=== PATIENT | male | born 1970 | race Caucasian/White ===

== ENCOUNTER 2023-04-21 19:14 | Inpatient (IN) | payer BC, SELFPAY ==
[2023-04-21] VITALS (17 sets, daily range): BP systolic 104–145; BP diastolic 61–93; BMI 30.1
[2023-04-21] MEDS: ZOSYN 50 IV ×2 (16:46→23:18)
[2023-04-21] MEDS: MORPHINE SULFATE 4 MG IV (16:46)
[2023-04-21] MEDS: NSS 1000 IV ×2 (16:46→18:40)
[2023-04-21 16:47] LABS: % Eosinophils 0.1 % (0-6); % Immature Granulocytes 0.7 % (0-0.5); % Lymphocytes 2.9 % (20.5-51.1); % Monocytes 2.7 % (1.7-9.3); % Neutrophils 93.6 % (42.2-75.2); Absolute Immature Granulocytes 0.2 10^3/uL (0-0.05); Absolute Lymphocytes 0.7 10^3/uL (1.2-3.4); Absolute Monocytes 0.7 10^3/uL (0.1-0.6); Absolute Neutrophils 23.5 10^3/uL (1.4-6.5); Hematocrit 40.2 % (39.0-52.0); Hemoglobin 14.9 g/dL (13.0-18.0); Mean Corp Hgb Conc. 37.1 g/dL (33.0-37.0); Mean Corpuscular Hgb 31.8 pg (27.0-31.0); Mean Corpuscular Volume 85.7 fL (80.0-94.0); Mean Platelet Volume 10.8 fL (7.4-10.4); Nucleated Red Blood Cells % 0 % (-); Platelet Count 269 10^3/uL (130-400); Red Blood Cell Count 4.69 10^6/uL (4.70-6.10); Red Cell Dist. Width 12.8 % (11.5-14.5); White Blood Cell Count 25.1 10^3/uL (4.8-10.8)
[2023-04-21 17:00] LABS: Lactic Acid 2.4 mmol/L (0.7-2.0)
[2023-04-21] MEDS: VANCOCIN 300 ML IV (17:27)
[2023-04-21] MEDS: VANCOCIN 300 MG IV (17:27)
[2023-04-21 17:39] LABS: ALT (SGPT) 108 U/L (0-50); AST (SGOT) 236 U/L (17-59); Alkaline Phosphatase 112 U/L (38-126); Blood Urea Nitrogen 101 mg/dl (9-20); Calcium 7.6 mg/dl (8.4-10.2); Carbon Dioxide 10 mmol/L (22-30); Chloride 98 mmol/L (98-107); Estimated Creatinine Clearance 18 ml/min; Glucose 98 mg/dl (70-99); LDH 425 U/L (120-246); Potassium 4.1 mmol/L (3.5-5.1); Sodium 128 mmol/L (135-145); Total Bilirubin 1.2 mg/dl (0.2-1.3); Total Protein 6.3 g/dl (6.3-8.2); eGFR 11.25
--- NOTE | 2023-04-21 18:05 | ED.GENMED ---
History of Present Illness
General
Chief Complaint: Skin Problem
Source: patient
Exam Limitations: none
Time Seen by Provider: 04/21/23 16:14
Nursing documentation reviewed up to this point in time: agreed with
Travel History
Have you had any contact with someone who has COVID-19?: No
Do you have any symptoms of coronavirus? Fever > 100 degrees, chills, cough, shortness of breath, sore throat, loss of taste or smell, muscle aches, or headache?: No
History of Present Illness
History of Present Illness:
53-year-old male with no reported chronic medical issues who presents to the emergency room for evaluation of left leg pain and swelling. Patient reports that 2 weeks ago he noticed a small 'sac' in the left inner thigh that was palpable but not
erythematous and only mildly painful. He says that over the past 48 hours he had an abrupt and rapid worsening. He says that he has had rapid onset of severe redness and warmth, hardness of his left thigh. He said he has had drainage from the
left medial thigh/groin. He says that the pain is significantly increasing. Initially spoke with his primary doctor who recommended to come to the emergency room for assessment. He has not noticed any fevers or chills subjectively. He has not
noticed any other issues including chest pain, abdominal pain, nausea, vomiting, diarrhea, urinary symptoms. He denies any falls or trauma.
Review of Systems
Review of Systems
All Other Systems: ROS reviewed and negative except as documented in HPI and ROS
Constitutional: Denies fever or chills
EENT: Denies sore throat
Respiratory: Denies cough or trouble breathing
Cardiac: Denies chest pain
ABD/GI: Denies abdominal pain, nausea or vomiting
: Denies flank pain
Musculoskeletal: Denies neck pain or back pain
Skin: Reports other (Significant erythema, warmth, swelling and drainage from left thigh)
Neurological: Denies headache, weakness or numbness
Phy Exam
Physical Exam
Physical Exam:
General: Awake, alert, oriented x3; no acute distress
Head: Normocephalic, atraumatic
Eyes: Conjunctiva normal, EOMI
Throat: Airway intact, handling secretions
Neck: Trachea midline, supple without meningismus
Lungs: Clear to auscultation bilaterally, no wheezing, rales, rhonchi
Heart: Tachycardia with regular rhythm, no murmurs, gallops, or rubs
Abd: Soft, non distended, nontender
: No scrotal swelling or erythema of the scrotum and perineum is intact and there is no significant swelling or tenderness in this area
Neuro: Cranial nerves grossly intact, speech fluid
Skin: no rash
Extremities: Patient has marked erythema, induration, warmth and swelling/edema of the left thigh mainly medial extends across the entire anterior thigh and tapers off towards the lateral/posterior aspect of the thigh; does not extend below the
knee; on the medial aspect about 4 cm distal to the inguinal crease he has area of necrotic skin/tissue and significant thin foul-smelling discharge; he does have a good strong left DP pulse
Scores
Heart Failure Risk
Heart Failure Risk Score: Not Applicable
Heart Score for Chest Pain Patients
STEMI patient?: Not applicable
Withdrawal Assessment of Alcohol
Withdrawal Assessment Completed?: Not applicable
Course
Orders/Labs/Results
Orders:
Orders
04/21/23 16:31
Urinalysis Reflex To Culture Urgent
04/21/23 16:33
0.9% Sodium Chloride 1000 ml [Nss] 1,000 ml IV BOLUS
Morphine Sulfate 4 mg IV NOW STA
Piperacillin/Tazo 3.375 Gram [Zosyn] 3.375 gram in 50 ml IV NOW
04/21/23 16:40
Complete Blood Count/With Diff Urgent
Lactate Level [Lactic Acid] Urgent
04/21/23 16:41
CRP [C-Reactive Protein] Urgent
Blood Culture Q30M
MARISOL Source: Blood/Venous
Specimen Description:
04/21/23 16:43
Blood Culture Q30M
MARISOL Source: Blood/Venous
Specimen Description:
04/21/23 16:55
Wound Culture [Wound/Abscess/Other Culture] Urgent
MARISOL Source: Leg
Specimen Description: Left
Date Specimen was Collected: 04/21/23
Time Specimen was Collected: 16:54
04/21/23 17:10
Comprehensive Metabolic Panel Urgent
LDH Urgent
04/21/23 17:18
Vancomycin [Vancocin] 1,500 mg 0.9% Sodium Chloride [Nss] 20 ml 0.9% Sodium Chloride 250 ml [Nss] 250 ml IV NOW
04/21/23 17:43
Bladder Scan- Treatment ONCE
0.9% Sodium Chloride 1000 ml [Nss] 1,000 ml IV BOLUS
04/21/23 17:44
CT Lower Ext W/o Iv Cont Lt Urgent
Comment:
Reason For Exam: eval for signs of abscess or soft tissue gas
04/21/23 18:01
NEPHROLOGY CONSULT Urgent
Consulting Provider: Juliette Mandujano
Was physician already notified: Yes
04/21/23 18:19
Clindamycin 900 mg/50 ml [Cleocin] 900 mg in 50 ml IV NOW
04/21/23 18:21
Consult Surgery [SURGICAL CONSULT] Urgent
Consulting Provider: Oren Taylor
Was physician already notified: Yes
Abnormal Lab Results
04/21/23 04/21/23
16:40 17:10
WBC 25.1 H 10^3/uL
(4.8-10.8)
RBC 4.69 L 10^6/uL
(4.70-6.10)
MCH 31.8 H pg
(27.0-31.0)
MCHC 37.1 H g/dL
(33.0-37.0)
MPV 10.8 H fL
(7.4-10.4)
Abs Immat Gran (auto) 0.2 H 10^3/uL
(0-0.05)
Absolute Neuts (auto) 23.5 H 10^3/uL
(1.4-6.5)
Absolute Lymphs (auto) 0.7 L 10^3/uL
(1.2-3.4)
Absolute Monos (auto) 0.7 H 10^3/uL
(0.1-0.6)
Immature Gran % 0.7 H %
(0-0.5)
Neutrophils % 93.6 H %
(42.2-75.2)
Lymphocytes % 2.9 L %
(20.5-51.1)
Sodium 128 L mmol/L
(135-145)
Carbon Dioxide 10 L* mmol/L
(22-30)
BUN 101 H* mg/dl
(9-20)
Creatinine 5.6 H* mg/dL
(0.7-1.3)
Lactic Acid 2.4 H mmol/L
(0.7-2.0)
Calcium 7.6 L mg/dl
(8.4-10.2)
AST 236 H U/L
(17-59)
ALT 108 H U/L
(0-50)
Lactate Dehydrogenase 425 H U/L
(120-246)
Albumin 3.0 L g/dl
(3.5-5.0)
04/21/23 16:40
04/21/23 17:10
Vital Signs
Initial and Last Documented VS:
Initial Vital Signs
Pulse Resp BP Pulse Ox
108 18 124/78 97
04/21/23 15:36 04/21/23 15:36 04/21/23 15:36 04/21/23 15:36
Last Documented Vital Signs
Temp Pulse Resp BP Pulse Ox
36.4 C 101 33 116/76 99
04/21/23 16:49 04/21/23 17:30 04/21/23 17:30 04/21/23 17:01 04/21/23 16:45
MDM/Problems Addressed
Differential Diagnosis Includes:
Cellulitis, abscess, necrotizing fasciitis; exam not consistent with a DVT
MDM/Problems Addressed:
53-year-old male presents for worsening redness, pain, swelling of the left thigh�initially noticed a small area of what sounds like localized swelling without skin changes 2 weeks ago�rapid progression of symptoms over the past 48 hours she says.
He arrived was tachycardic but afebrile, normotensive. Exam as above. Fortunately perineum/scrotum spared but he does have extensive erythema of the thigh and towards the inguinal crease. Plan to place large-bore IV send labs including CBC and a
CMP, lactate, blood cultures, CRP. Will treat with pain medication, IV fluids, empiric antibiotics. Will send wound culture from that area of the medial thigh described above. Will send for CT of the left lower extremity to evaluate for abscess.
Discussed with general surgery for assessment they agreed with workup as above to start.
Labs reviewed CBC shows leukocytosis to 25.1. CMP shows hyponatremia 128, acute renal failure with a creatinine of 5.6. He has a metabolic acidosis with a CO2 of 10�elevated anion gap of 20 suspect likely secondary to renal failure/uremia as well
as a lactic acidosis as his lactate is elevated at 2.4. Bladder scan showed no retained urine. He has abnormal LFTs with elevated AST and ALT. CT of the extremity was changed to noncontrast CT given his acute renal failure. Will complete a 30
cc/kg bolus with concern for severe sepsis. Already received empiric antibiotics. Discussed with nephrology for consultation. Will plan for admission pending CT and discussion with general surgery.
CT reviewed by me appears to show subcutaneous air�my concern is for necrotizing fasciitis. Added clindamycin to his antibiotic coverage. Call placed to general surgery and discussed case�they will evaluate at bedside. Case discussed with
hospitalist for admission pending surgical consult.
Acute Exacerbation and/or Progression of Chronic Illness:
Acute renal failure
*Radiology
Radiology exam reviewed: radiology read reviewed
*Pulse Oximetry
Patient hypoxic: no
*Critical Care Note
Total Time (30-74mins, 75-104mins- exclusive of procedures): 41
comment:
Critical care statement: A total of 41 minutes of critical care time was provided for this patient. This includes management of unstable vital signs, evaluation of the patient at bedside, frequent reassessment, discussion with
consultants/hospitalist, and review of pertinent medical records. This time was separate from time utilized to perform any aforementioned documented procedures
Data Reviewed
Source: patient and family (Mother)
Patient Management
Discussion with other providers: Hospitalist (Discussed with hospitalist) and Manager Developmental (Discussed with general surgery, discussed with nephrology)
Escalation/DeEscalation of care consider admission/obs:
Admission indicated
ED Attending Note
-
Portions of this chart may have been created with voice recognition software.� Occasional wrong word or��sound alike� substitutions may have occurred due to the inherent limitations of voice recognition software.
Discharge Plan
Departure
Patient Disposition: Admit
Date of Disposition: 04/21/23
Time of Disposition: 18:27
Admit to doctor: Billy
Presentation/result/management discussed w/ accepting MD/DO: Hospitalist
Discharge Problem:
Necrotizing fasciitis, Severe sepsis, Cellulitis of left thigh, Acute renal failure
Prescriptions:
No Action
meloxicam [Mobic] 15 mg Tablet
15 mg PO BIDPRN PRN (Reason: mild pain)
loperamide 2 mg Tablet
2 mg PO Q4H
Theragen Tablet
1 tab PO DAILY
ibuprofen [Advil] 200 mg Tablet
200 mg PO Q6H PRN (Reason: MILD PAIN)
Referrals:
NONE,* [Family Provider] -
Interventions
Interventions:
*Risk Screen - Suicide Last Done: 04/21/23 15:36
*General Assessment Last Done: 04/21/23 15:36
*Neglect/Abuse Screening Last Done: 04/21/23 15:36
ED- Fall Risk Assessment Last Done: 04/21/23 16:57
*ED COVID-19 Vaccine History Last Done: 04/21/23 15:36
ED-Skin Assessment Last Done: 04/21/23 16:57
[2023-04-21 18:35] LABS: C-Reactive Protein > 270.00 mg/L (0.0-10.00)
--- NOTE | 2023-04-21 18:54 | HPS.HSE ---
Family Physician
-
Family Physician: * NONE
Chief Complaint
-
left leg pain
History of Present Illness
53-year-old male past medical history of arthritis presenting for left leg pain and swelling. Over the past 2 weeks he noticed a small sac in the left thigh that was palpable but no redness and only mildly painful. Over the past 48 hours he had
abrupt and rapid worsening. He has had drainage from the left medial thigh and groin. Pain is significantly increasing. He initially spoke with his primary care doctor who recommended he come to the emergency room. He denies any fevers or
chills. He denies any chest pain, abdominal pain, nausea vomiting. He denies any scrotal pain.
He did have diarrhea for few days a few days ago but this has since resolved. He has not eaten in 36 hours. He has not urinated in the past 2 days.
He takes frequent NSAIDs for left hip arthritis. He is scheduled to undergo hip surgery next month.
Medical History
Past Medical History
Past Medical History: Reports Other ( arthritis)
Past Surgical History: Reports None
Social History
Tobacco: Non-smoker
Alcohol: None
Drug: None
Family History
Family History: Not pertinent
Allergies / Home Medications
Allergies reflects when Allergies were last updated in [facility].
Home Medications with original date entered in [facility]
Allergy/Medication List:
Allergies
Allergy/AdvReac Type Severity Reaction Status Date / Time
No Known Allergies Allergy Unverified 04/21/23 15:40
Home Medications
ibuprofen 200 mg tablet (Advil) 200 mg PO Q6H PRN MILD PAIN 04/21/23
loperamide 2 mg tablet 2 mg PO Q4H DIARRHEA 04/21/23
meloxicam 15 mg tablet 15 mg PO BIDPRN PRN mild pain 04/21/23
therapeutic multivitamin 1 tab PO DAILY 04/21/23
Review of Systems
-
History Source: Patient
A 12 point ROS was completed and negative except as noted: Yes
Constitutional: Reports No Symptoms
EENT: Reports No Symptoms
Respiratory: Reports No Symptoms
Cardiac: Reports No Symptoms
Abdomen/GI: Reports No Symptoms
: Reports No Symptoms
Musculoskeletal: Reports No Symptoms
Skin: Reports No Symptoms
Neurological: Reports No Symptoms
Endocrine: Reports No Symptoms
Hematologic/Lymphatic: Reports No Symptoms
Psych: Reports No Symptoms
Physical Exam
Vital Signs
Vital Signs
Temp Pulse Resp BP Pulse Ox
97.5 F 100 30 120/69 98
04/21/23 16:49 04/21/23 18:41 04/21/23 18:41 04/21/23 18:41 04/21/23 18:41
Physical Exam
General: Well Developed, Well Nourished and No Apparent Distress
HEENT: NormoCephalic, Moist mucous membranes and Atraumatic
Respiratory: Clear
Cardiac: S1/S2 and Regular Rhythm; No Murmur or Rub
GI: Soft, Non Tender, Non Distended and Normal Bowel Sounds; No Organomegaly
Rectal: Deferred by Provider
Musculoskeletal: No Clubbing, No Cyanosis and No Edema
Skin: Other (erythematous left leg extremity ); No Rash
Neuro: Nonfocal/grossly intact
Laboratory Results
-
04/21/23 16:40
04/21/23 17:10
Laboratory Results
Lactic Acid 2.4 mmol/L (0.7-2.0) H 04/21/23 16:40
Total Bilirubin 1.2 mg/dl (0.2-1.3) 04/21/23 17:10
AST 236 U/L (17-59) H 04/21/23 17:10
ALT 108 U/L (0-50) H 04/21/23 17:10
Alkaline Phosphatase 112 U/L (38-126) 04/21/23 17:10
Data Reviewed
-
Lab Data: Labs Reviewed by me
Old Records: Reviewed
Impression/Plan
-
IMPRESSION:
PLAN:
# Sepsis (leukocytosis, tachycardia, tachypnea) secondary to suspected necrotizing fasciitis of left lower extremity
-CT scan of left lower extremity pending
-Check blood cultures
-IV fluids
-Vancomycin, Zosyn, clindamycin
-General surgery to take to OR
-Dilaudid for pain
-check CPK
# Severe anuric DONALD secondary to sepsis exacerbated by NSAID use
# Anion gap metabolic acidosis
-Check lactate
-Bicarb drip
-Hold NSAIDs
-Taylor catheter to monitor urine output
-Nephrology consulted
# Prolonged QTc secondary to acidosis
-EKG shows normal sinus rhythm
-QTc of 505
-Check magnesium
-Check EKG tomorrow
# Transaminitis in the setting of sepsis
-Continue to monitor
# Hyponatremia secondary to decreased p.o. intake
-monitor with fluids
Full code
DVT prophylaxis�SCDs
NPO
--- NOTE | 2023-04-21 20:11 | CON.GS ---
Consultation
-
Requesting Provider: Julito
Performing Provider: Brandon
Reason for Consultation: Necrotizing soft tissue infection
Medical History
-
Chief Complaint: Left leg pain/swelling
History of Present Illness:
Pt with 2 week hx of small lump in the groin that over the past 24 hrs suddenly rapidly expanded. His left thigh became red, swollen, tender, and draining foul smelling fluid from the groin. Denies f/c/n/v, endorses 36 hrs anorexia, reports no urine
in 2 days. He has severe OA of the both hips and is scheduled for VON in the coming months.
Past Medical History
Past Medical History: Other (as per HPI)
Past Surgical History: None
Social History
Tobacco: Non-Smoker
Alcohol: None
Drug: None
Living: Alone
Family History
Family History: Reviewed & Noncontributory
Allergies / Home Medications
Allergy/AdvReac Type Severity Reaction Status Date / Time
No Known Allergies Allergy Unverified 04/21/23 15:40
Medication Instructions Recorded Confirmed Type
ibuprofen 200 mg tablet (Advil) 200 mg PO Q6H PRN MILD PAIN 04/21/23 04/21/23 History
loperamide 2 mg tablet 2 mg PO Q4H DIARRHEA 04/21/23 04/21/23 History
meloxicam 15 mg tablet 15 mg PO BIDPRN PRN mild pain 04/21/23 04/21/23 History
therapeutic multivitamin 1 tab PO DAILY 04/21/23 04/21/23 History
Review of Systems
-
A 10 point review of systems was completed, and was negative except as per HPI.
Physical Exam
Vital Signs
Temp Pulse Resp BP Pulse Ox
97.5 F 100 30 120/69 98
04/21/23 16:49 04/21/23 18:41 04/21/23 18:41 04/21/23 18:41 04/21/23 18:41
04/20/23 04/21/23 04/22/23
06:59 06:59 06:59
Actual Weight 112 kg
Body Mass Index (BMI) 30.1
Lab Results
04/21/23 16:40
04/21/23 17:10
WBC 25.1 10^3/uL (4.8-10.8) H 04/21/23 16:40
Hgb 14.9 g/dL (13.0-18.0) 04/21/23 16:40
Hct 40.2 % (39.0-52.0) 04/21/23 16:40
Plt Count 269 10^3/uL (130-400) 04/21/23 16:40
Abs Immat Gran (auto) 0.2 10^3/uL (0-0.05) H 04/21/23 16:40
Neutrophils % 93.6 % (42.2-75.2) H 04/21/23 16:40
Physical Exam
General: Other (mild distress)
HEENT: Normocephalic and Anicteric
GI: Soft and Non Tender
Skin: Other (left anterior thigh with severe blanching erythema, fluctuance to left groin, peau d' orange skin changes)
Neuro: AO x 3
Data Reviewed
-
CT Scan: Image Personally Visualized and interpreted, Report Reviewed by me, Discussed with Physician, Discussed with Patient and Discussed with Family
Labs: Labs Reviewed by me, Discussed with Physician, Discussed with Patient and Discussed with Family
Assessment / Plan
-
53M with NSTI of left anterior thigh
AF, mild tachycardia, normotensive
WBC 25K
Na 128
Cr 5.6
BUN 101
LDH 425
CRP >270
CT with soft tissue edema and emphysema of the soft tissues of the left thigh extending from the groin to just above the knee
Plan:
Agree with ICU admission
IV abx Vanc/zosyn/clinda
OCTOR for I&D and Cx
--- NOTE | 2023-04-21 20:18 | W.IMMPOSTOP ---
Surgical Immed Post Op Note
-
Primary Surgeon: Brandon
Pre-op Diagnosis: Necrotizing soft tissue infection of the thigh
Post-op Diagnosis: Same
Procedure Performed: Incision and debridement of necrotizing soft tissue infection of the thigh
Anesthesia Type: LMA
Specimen / Cultures: Deep wound Cx
Estimated Blood Loss: 15cc
Complications: None immediate
Operative Findings: Foul smelling cloudy drainage from a skin defect in the lateral left groin crease, this was bluntly explored and tracked posteriorly to the perianal subcutaneous tissue, tank-laterally toward the ASIS, and inferiorly toward
the knee joint. Several full thickness counter incisions were made with a #10 blade to promote drainage. The wound cavity was thoroughly irrigated with warm sterile saline. A single saline moist kerlix was used to pack the wounds which all
communicate with a large subcutaneous pocket encompassing the anterior left thigh ([id number])
[2023-04-21] MEDS: CLEOCIN 50 IV (20:37)
[2023-04-21 20:53] LABS: Hemoglobin 13.6 g/dL (13.0-18.0); Mean Corp Hgb Conc. 36.8 g/dL (33.0-37.0); Mean Corpuscular Hgb 31.7 pg (27.0-31.0); Mean Corpuscular Volume 86.2 fL (80.0-94.0); Mean Platelet Volume 11.1 fL (7.4-10.4); Platelet Count 244 10^3/uL (130-400); Red Blood Cell Count 4.29 10^6/uL (4.70-6.10); Red Cell Dist. Width 12.9 % (11.5-14.5); White Blood Cell Count 20.8 10^3/uL (4.8-10.8)
[2023-04-21] MEDS: SODIUM BICARBONATE 1150 MEQ IV (21:02)
[2023-04-21 21:04] LABS: INR 1.46; PT 17.6 Sec (11.4-14.6)
[2023-04-21] MEDS: DILAUDID 0.5 MG IV (21:04)
[2023-04-21 21:05] LABS: APTT 25.8 Sec (23.4-35.0)
[2023-04-21 21:09] LABS: Absolute Neutrophils -Man Diff 19.5 10^3/uL (1.4-6.5); Band Neutrophils 14 % (0-3); Lymphocytes 5 % (20-51); Monocytes 1 % (2-9); Platelets Checked Yes; Segmented Neutrophils 80 % (42-75)
[2023-04-21 21:11] LABS: Burr Cells 2+; Normal RBC Morphology No
[2023-04-21 21:12] LABS: Total Cells Counted 100
[2023-04-21 21:14] LABS: ALT (SGPT) 94 U/L (0-50); AST (SGOT) 190 U/L (17-59); Albumin 2.6 g/dl (3.5-5.0); Alkaline Phosphatase 85 U/L (38-126); Blood Urea Nitrogen 105 mg/dl (9-20); Calcium 6.7 mg/dl (8.4-10.2); Carbon Dioxide 14 mmol/L (22-30); Chloride 97 mmol/L (98-107); Estimated Creatinine Clearance 20 ml/min; Glucose 92 mg/dl (70-99); Potassium 4.2 mmol/L (3.5-5.1); Sodium 129 mmol/L (135-145); Total Bilirubin 1.2 mg/dl (0.2-1.3); Total Protein 5.5 g/dl (6.3-8.2); eGFR 12.88
--- NOTE | 2023-04-21 21:15 | PHA.VAN.IN ---
Assessment
- Assessment
Renal Function: Unknown baseline
Concomitant Antimicrobials: CLINDAMYCIN,ZOSYN
- Previous Dosing Experience
Previous Regimen: NONE
Plan
- Plan
Initial / Loading Dose: 1500MG
Maintenance Regimen: DOSING BY RANDOM LEVEL
Monitoring: RANDOM VANCOMYCIN LEVEL 04/22/23 AM
Pharmacokinetics Vancomycin I
- -
Patient Age: 53
Patient Sex: Male
Vancomycin Day #: 1
Indication: Skin And Soft Tissue (NECROTIZING FASCITIS/SEPSIS)
Requesting Provider: DAMON
Height / Weight:
Height 6 ft 4 in
Actual Weight 112 kg
- Vital Signs / Lab Results
Temp Pulse Resp BP Pulse Ox
97.9 F 99 25 125/67 99
04/21/23 20:10 04/21/23 20:45 04/21/23 20:45 04/21/23 20:45 04/21/23 20:45
Lab Results - Hematology
04/21/23 04/21/23
16:40 20:46
WBC 25.1 H 20.8 H
Band Neutrophils 14 H
Lab Results - Chemistry
04/21/23 04/21/23 04/21/23
16:41 17:10 20:46
BUN Cancelled 101 H* 105 H*
Creatinine Cancelled 5.6 H* 5.0 H*
Estimated Creat Clear Cancelled 18 20
Albumin Cancelled 3.0 L 2.6 L
04/21/23
16:40
Lactic Acid 2.4 H
Microbiology Results
04/21/23 16:55 Gram Stain - Preliminary
Leg - Left
[2023-04-21 21:21] LABS: Lactic Acid 1.8 mmol/L (0.7-2.0)
[2023-04-21 21:31] LABS: Creatine Phosphokinase 1428 U/L (55-170)
--- NOTE | 2023-04-21 21:40 | SUR.PHASEI ---
patient in pacu post op Incision and drainage left thigh- necrotizing fascitis, only able to obtain pulse oximetry on ear, face, reddened trudy flushed, tongue brilliant red, dry mucous membranes, left leg red,swollen, - reddness extends to knee
and around buttocks, dressing reinforced for foul smelling pink tinged drainage, labs drawn and sent - results to [facility] RN and [facility] SOCIAL STUDIES TEACHER. cleocin infused - bolus of 300cc normosol and IV with bicarb hung. right hand and feet slightly improved in
color in pacu. neurologically stares and ceiling, speech garbled, difficult to tell orientation. very weak, attempts to follow commands but unable to turn self. tachypnea persists. Dr Wilkes updated with labs and assess. patient transferred to
[facility]
[2023-04-21] MEDS: CALCIUM GLUCONATE 130 MG IV (21:58)
[2023-04-21 21:59] LABS: Magnesium 2.4 mg/dl (1.6-2.3)
--- NOTE | 2023-04-21 22:00 | PTCARENOTE ---
Pt arrived via stretcher from PACU. Pt drowsy, arousable to voice, AAOx3. Pt with slow slurred speech, pt reports having speech impediment at baseline. HR in the 80's in NSR with first degree heart block on monitor. POX 100% ON 2 LO2 NC. lungs dec
at bases, tachypneic at rest. Hyper bowel, round abd. Pt with no urine output, Temp sensing klein placed per MD order, now draining hiram colored urine. Weak palpable peripheral pulses present. Cool, cyanotic B/L LE. +3 left Upper thigh edema/
erythema, hot to touch. Left thigh dressing intact with drainage noted, Covidien pads applied. Pt reports pain at tolerable level at this time. Pt with left forehead abrasion, scabbed and open to air. pt reports falling and hitting head few days
ago. Knee high seq applied. Left wrist int capped. Right AC int infusing Bicarb gtt @150ml/hr per MD order. Pt denies any complaints at this time. Call enriquez in reach. Will continue to monitor.
[2023-04-22] VITALS (22 sets, daily range): BP systolic 96–132; BP diastolic 62–91
[2023-04-22 03:23] LABS: Hematocrit 33.5 % (39.0-52.0); Hemoglobin 12.4 g/dL (13.0-18.0); Mean Corpuscular Hgb 31.3 pg (27.0-31.0); Mean Corpuscular Volume 84.6 fL (80.0-94.0); Mean Platelet Volume 10.9 fL (7.4-10.4); Nucleated Red Blood Cells % 0 % (-); Platelet Count 242 10^3/uL (130-400); Red Blood Cell Count 3.96 10^6/uL (4.70-6.10); Red Cell Dist. Width 12.6 % (11.5-14.5); White Blood Cell Count 20.3 10^3/uL (4.8-10.8)
--- NOTE | 2023-04-22 03:50 | PTCARENOTE ---
Pt now awake. Am lab work obtained, EKG per MD order. Left leg dressing with saturated ABD's/Juarez wrap, Covidien saturated. New ABD's/ JUAREZ wrap now in place, new Covidien underneath leg. Pt reports pain at tolerable level, denies need for pain
medication at this time. Vital signs remain stable. Taylor with good urine output. Bicarb gtt infusing as ordered. Oral care/ Taylor care complete. Pt repositioned per comfort. pt laying awake watching tv. Will continue to monitor.
[2023-04-22 03:58] LABS: Band Neutrophils 18 % (0-3); Lymphocytes 5 % (20-51); Monocytes 1 % (2-9); Normal RBC Morphology Yes; Platelets Checked N; Segmented Neutrophils 76 % (42-75); Total Cells Counted 100
[2023-04-22 04:05] LABS: Vancomycin Random 15.7 ug/ml
[2023-04-22 04:31] LABS: ALT (SGPT) 79 U/L (0-50); AST (SGOT) 137 U/L (17-59); Albumin 2.2 g/dl (3.5-5.0); Alkaline Phosphatase 75 U/L (38-126); Blood Urea Nitrogen 99 mg/dl (9-20); Calcium 6.2 mg/dl (8.4-10.2); Carbon Dioxide 14 mmol/L (22-30); Chloride 101 mmol/L (98-107); Estimated Creatinine Clearance 25 ml/min; Glucose 97 mg/dl (70-99); Magnesium 2.3 mg/dl (1.6-2.3); Potassium 4.2 mmol/L (3.5-5.1); Sodium 131 mmol/L (135-145); Total Protein 4.9 g/dl (6.3-8.2); eGFR 16.35
[2023-04-22] MEDS: ZOSYN 50 IV (05:05)
[2023-04-22] MEDS: CLEOCIN 50 IV ×3 (05:07→22:51)
[2023-04-22] MEDS: SODIUM BICARBONATE 1150 MEQ IV ×3 (05:18→23:45)
[2023-04-22] MEDS: CALCIUM GLUCONATE 130 MG IV (05:19)
--- NOTE | 2023-04-22 06:23 | W.PN.HOSP.TC ---
Today's Communication/Plan
-
.
Assessment / Plan
Assessment / Plan
Physical Exam
General: ill looking, no respiratory distress
HEENT: Normocephalic, Moist mucous membranes and Atraumatic
Respiratory: Clear
Cardiac: S1/S2 and Regular Rhythm; No Murmur or Rub
GI: Soft, Non Tender, Non Distended and Normal Bowel Sounds; No Organomegaly
Rectal: no bleeding
Musculoskeletal: No Clubbing, No Cyanosis and No Edema
Skin: wound in left upper thigh area with packing inside and + discharge, foul smelling, No Rash
Neuro: Nonfocal/grossly intact
Psych: no agitation
# Sepsis (leukocytosis, tachycardia, tachypnea) secondary to �Necrotizing soft tissue infection of the left thigh
s/p �Incision and debridement of necrotizing soft tissue infection of the thigh by Dr Taylor on 04/20.
no significant pain
Borderline low BP but did not need pressure support
still tachycardia with low grade temp
c/w support
Broad spectrum AB
wound care
WBC is at 20 from 25
-CT scan of left lower extremity: Marked widespread bubbles of air throughout the superficial fatty soft tissues of virtually the entire proximal and mid left thigh
f/w blood cultures
f/w wound cultures
Appreciate surgery, ID & ICU doctors input
# DONALD secondary to sepsis exacerbated by NSAID use
# Anion gap metabolic acidosis with lactic acidosis
Creatinine is down to 4 from 5.6
+ urine out put in Taylor
Maintain Taylor for now
c/w IVF
Order renal US
Check urine test
Appreciate nephrology input
# Prolonged QTc secondary to acidosis
-EKG shows normal sinus rhythm
QT within an average
# Ischemic hepatitis , presented with Transaminitis in the setting of sepsis
-Continue to monitor
Ast?ALT are coming down
Ok to use Tylenol
No abd pain
# Hyponatremia secondary to decreased p.o. intake
-monitor with fluids
Full code
DVT prophylaxis�SCDs
Total time spent to see the patient, examine the patient on the floor, review data and lab results, discuss treatment plan with patient, nursing staff around 55 minutes
Anticipated Discharge: > 48 hours
Subjective/Interval History
-
Date of Service: April 22, 2023
No chest pain
No sob
No headache
Objective Data
-
Labs:
Laboratory Results
04/21/23 04/22/23
20:46 02:59
WBC 20.8 H 20.3 H
Hgb 13.6 12.4 L
Hct 37.0 L 33.5 L
Plt Count 244 242
PT 17.6 H
INR 1.46
APTT 25.8
Sodium 129 L 131 L
Potassium 4.2 4.2
Chloride 97 L 101
Carbon Dioxide 14 L* 14 L*
BUN 105 H* 99 H
Creatinine 5.0 H* 4.1 H*
Glucose 92 97
Calcium 6.7 L* 6.2 L*
Total Bilirubin 1.2 1.0
AST 190 H 137 H
ALT 94 H 79 H
Alkaline Phosphatase 85 75
Vital Signs:
Vital Signs
Temp Pulse Resp BP Pulse Ox
98.6 F 91 30 99/74 100
04/22/23 03:44 04/22/23 03:30 04/22/23 03:30 04/22/23 03:00 04/22/23 03:00
I&O
04/20/23 04/21/23 04/22/23
06:59 06:59 06:59
Intake Total 2640 / 2640
Output Total 1125 / 1125
Balance 1515 / 1515
--- NOTE | 2023-04-22 07:11 | CON.INTV ---
Consultation
Consultation Request
Date/Time Consultation Requested: 04/22/23
Date/Time Consultation Performed: 04/22/23
Medical History
-
History of Present Illness:
Patient is a 53-year-old male with no significant past medical history presenting to ER for subacute left leg pain and swelling.� 2 weeks ago, patient noted a small palpable lesion in the left thigh with mild TTP but no surrounding erythema.
This rapidly worsened in the past 48 hours with new drainage and worsening pain.� He has developed associated decreased PO intake and decreased urine output at the same time.
He takes frequent NSAIDs for left hip arthritis.� He is scheduled to undergo hip surgery next month.
In ER, noted to have severe metabolic acidosis and DONALD.
Due to suspicion for necrotizing fasciitis he underwent emergent incision and debridement of the thigh. Admitted to ICU postop.
Past Medical History
Past Medical History: Other (see list below)
Social History
Tobacco: Smoker
Alcohol: None
Drug: None
Family History
Family History: Reviewed & Not Pertinent
Allergies / Home Medications
Allergies
Allergy/AdvReac Type Severity Reaction Status Date / Time
No Known Allergies Allergy Unverified 04/21/23 15:40
Home Medications
Medication Instructions Recorded Confirmed Last Taken Type
ibuprofen 200 mg tablet (Advil) 200 mg PO Q6H PRN MILD PAIN 04/21/23 04/21/23 04/20/23 History
loperamide 2 mg tablet 2 mg PO Q4H DIARRHEA 04/21/23 04/21/23 04/20/23 History
meloxicam 15 mg tablet 15 mg PO BIDPRN PRN mild pain 04/21/23 04/21/23 04/16/23 History
therapeutic multivitamin 1 tab PO DAILY 04/21/23 04/21/23 04/21/23 History
Review of Systems
-
History Source: Patient
All other systems: Negative unless noted
Vitals / Labs / Diagnostic Testing
Vital Signs
Temp Pulse Resp BP Pulse Ox
98.6 F 94 25 110/63 97
04/22/23 03:44 04/22/23 06:15 04/22/23 06:15 04/22/23 06:00 04/22/23 06:15
Lab Data
04/22/23 02:59
04/22/23 02:59
Laboratory Results
04/21/23
20:46
PT 17.6 H
INR 1.46
APTT 25.8
Microbiology
04/21/23 16:55 Leg - Left Gram Stain - Preliminary
Diagnostic Testing:
Physical Exam
-
HEENT: Normocephalic, Anicteric and Moist Mucous Membranes
Cardiovascular: S1/S2, Regular Rhythm and Peripheral Edema (none)
Respiratory: Clear and Non-Labored Respirations
GI: Soft, Distended and Non Tender
Neurology: Awake, Alert, Oriented, AO x 3 and No Motor Deficits
Skin: Warm and Dry
General: Pain and Other (NAD, discomfort noted)
Assessment
-
Patient is a 53-year-old male with no significant past medical history presenting to ER for subacute left leg pain and swelling.� 2 weeks ago, patient noted a small palpable lesion in the left thigh with mild TTP but no surrounding erythema.
This rapidly worsened in the past 48 hours with new drainage and worsening pain.� He has developed associated decreased PO intake and decreased urine output at the same time. In ER, noted to have severe metabolic acidosis and DONALD. Due to suspicion
for necrotizing fasciitis he underwent emergent incision and debridement of the thigh. Admitted to ICU postop.
Severe life-threatening necrotizing fasciitis status post emergent I&D 04/22/23
Severe metabolic acidosis
Acute kidney injury, creatinine 5.6
Hyponatremia
Hypocalcemia
Mild transaminitis
Leukocytosis
Conditions present [employer]
Anxiety disorder� �
Arthritis� �
Cataract-lens implants� �
Hernia repair� �
S/p deviated septum repair� �
Right knee arthroscopy� �
Current smoker
Plan
No current signs of metabolic encephalopathy or MS changes/following commands
Baseline MS reported as AAO x 3
Pain control
Pain/sedation: tylenol scheduled, dilaudid PRN
RASS goals: 0
Hemodynamically stable, not requiring pressors.
Cardiac history reviewed--none
No prior ECHO for review
Monitor on telemetry
Oxygen needs: stable on RA
Prior history of lung disease: none but he is a chronic smoker/no PFTs for review
Smoking cessation
Supplemental O2 as indicated to maintain sats > 89%
CXR/CT reviewed indicating NAD, repeat testing as needed
Diet advanced per surgery
Aspiration precautions, HOB > 30 degrees
Speech therapy eval can be considered if at elevated risk
GI prophylaxis if indicated for mechanical ventilation >48 hours, prior history of GERD, stress ulcer formation in the critically ill
DONALD present likely due to presumed sepsis/acidosis
Nephrology consult obtained
No history of renal disease
Void trials
Follow urine output, critical I/Os
Replete electrolytes as needed: Ca, check Mg/phos
Acid/base status: IV bicarb, repeat labs later today
Fever and increased WBC on presentation, nec fasc noted on CT--urgent finding with rapid progression in 48 hours
s/p urgent I&D 04/21/23, surgery following
Started on empiric antibiotics, ID consult obtained
Cultures sent/pending
Follow fever trend, WBC count
Lactate elevated on admission, continue to trend until <2
CBC stable, no signs of bleeding or coagulopathy.
DVT prophylaxis as assessed based on risk, including mechanical SCDs
Can transfuse if indicated for Hb <7, plt < 10
INR WNL
No prior h/o diabetes or thyroid disease
Monitor accuchecks PRN/SS coverage if needed
We will follow
Diagnostic Data
Chest X-Ray: no acute process
CT Scan: LE 04/21/23- Marked widespread bubbles of air throughout the superficial fatty soft tissues of virtually the entire proximal and mid left thigh as well as some superficial edematous changes, suspicious for at least superficial soft tissue
infection. On the basis of this study, deep soft tissue infection of the left side cannot be excluded. No findings to confirm bubbles of air within the deep soft tissues/muscles of the left thigh. Evaluation for abnormal focal fluid collection such
as a soft tissue abscess markedly limited without intravenous contrast.
Echo:
PFT's:
Reports and relevant images were personally reviewed.
-----
Critical Care time 60 mins -- The patient is admitted for acute critical illness for the treatment of vital organ failure and/or prevention of further life-threatening conditions. Total care includes time spent in review of history, physical exam,
medications, hemodynamic/ventilator parameters, laboratory data, imaging and discussion with house staff, pharmacy, respiratory therapy, fisher pound net or trap, and nursing.
--- NOTE | 2023-04-22 08:11 | W.CON.NEPH ---
Consultation
-
Date/Time Consultation Requested: 04/21/2023 6:00 PM
Date/Time Consultation Performed: 04/22/2023 745 am
Requesting Provider: Linda
Performing Provider: Oleksandr
Reason for Consultation: DONALD
Medical History
-
Chief Complaint: Acute kidney
History of Present Illness:
53-year-old male past medical history of arthritis maintained on NSAIDs presenting for left leg pain and swelling.� Over the past 2 weeks he noticed a small sac in the left thigh that was palpable but no redness and only mildly painful.� Over the
past 48 hours he had abrupt and rapid worsening.� He has had drainage from the left medial thigh and groin.� Pain is significantly increasing.� He initially spoke with his primary care doctor who recommended he come to the emergency room.� He denies
any fevers or chills.� He denies any chest pain, abdominal pain, nausea vomiting.�He did have diarrhea for few days a few days ago but this has since resolved.� He has not eaten in 36 hours.� He has not urinated in the past 2 days..� He is scheduled
to undergo hip surgery next month. On presentation to the hospital he was noted to have acute kidney injury with creatinine of 5 with associated hyponatremia and metabolic acidosis.
Past Medical History
Osteoarthritis
Social History
Tobacco: Non-Smoker
Alcohol: None
Family History
No chronic kidney disease
Allergies / Home Medications
Allergy/AdvReac Type Severity Reaction Status Date / Time
No Known Allergies Allergy Unverified 04/21/23 15:40
Medication Instructions Recorded Confirmed Type
ibuprofen 200 mg tablet (Advil) 200 mg PO Q6H PRN MILD PAIN 04/21/23 04/21/23 History
loperamide 2 mg tablet 2 mg PO Q4H DIARRHEA 04/21/23 04/21/23 History
meloxicam 15 mg tablet 15 mg PO BIDPRN PRN mild pain 04/21/23 04/21/23 History
therapeutic multivitamin 1 tab PO DAILY 04/21/23 04/21/23 History
Review of Systems
-
History Source: Patient
All other systems: Negative unless noted
: Other (Decreased urine output over past several days)
Musculoskeletal: Other (Bilateral hip pain left anterior thigh lesion)
Physical Exam
Vital Signs
Vital Signs
Temp Pulse Resp BP Pulse Ox
99.6 F 94 25 110/63 97
04/22/23 08:09 04/22/23 06:15 04/22/23 06:15 04/22/23 06:00 04/22/23 06:15
Lab Results
04/22/23 02:59
04/22/23 02:59
WBC 20.3 10^3/uL (4.8-10.8) H 04/22/23 02:59
RBC 3.96 10^6/uL (4.70-6.10) L 04/22/23 02:59
Hgb 12.4 g/dL (13.0-18.0) L 04/22/23 02:59
Hct 33.5 % (39.0-52.0) L 04/22/23 02:59
Plt Count 242 10^3/uL (130-400) 04/22/23 02:59
Sodium 131 mmol/L (135-145) L 04/22/23 02:59
Potassium 4.2 mmol/L (3.5-5.1) 04/22/23 02:59
Chloride 101 mmol/L (98-107) 04/22/23 02:59
Carbon Dioxide 14 mmol/L (22-30) L* 04/22/23 02:59
BUN 99 mg/dl (9-20) H 04/22/23 02:59
Creatinine 4.1 mg/dL (0.7-1.3) H* 04/22/23 02:59
eGFR 16.35 04/22/23 02:59
Glucose 97 mg/dl (70-99) 04/22/23 02:59
Calcium 6.2 mg/dl (8.4-10.2) L* 04/22/23 02:59
Albumin 2.2 g/dl (3.5-5.0) L 04/22/23 02:59
Physical Exam
General: AOx3
HEENT: PERRL, EOMI, Anicteric, Conjunctivae Clear, Ear/Nose Intact, Oropharynx Clear/Moist, Neck Supple, Trachea Midline, No JVD and No Thyromegaly
Respiratory: Clear
Cardiac: S1/S2 (Tacky), Regular Rate/Rhythm (Tachycardic) and Murmur
Breast: Deferred by me
Abdomen: Soft, Nontender, Nondistended, Normal Bowel Sounds and No Hepatosplenomegaly
Rectal: Deferred by Provider
Genito-urinary: Other (Taylor catheter in place)
Musculoskeletal: No Clubbing, No Cyanosis and Edema (+2 edema left greater than right)
Skin: Other (Left anterior thigh wound and surgical dressing clean dry intact)
Neuro: Nonfocal/Grossly Intact, CN II-XII and Strength (5 out of 5 in all EXTRemtites)
Hematologic/Lymphatic: No Cervical Lymphadenopathy, No Submandibular Lymphadenopathy and No Supraclavicular Lymphadenopathy
Psych: Mood/afflect pleasant
Assessment/Plan
-
Impression:
Acute kidney injury
Hyponatremia
Anion gap metabolic acidosis
Sepsis (leukocytosis, tachycardia, tachypnea) secondary to suspected necrotizing fasciitis of left lower extremity
Abnormal LFTs/elevated CPK
Plan:
Acute kidney injury likely a function of prerenal stimulus in setting of sepsis versus NSAID induced injury
Zosyn renally dose (cultures pending)_
Will obtain urinalysis and kidney and bladder ultrasound
Maintain MAP greater than 65 to augment renal perfusion pressure
No acute kidney dialysis at this time
Replete calcium
Maintain sodium bicarbonate IV fluid infusion in setting of anion gap metabolic acidosis
Closely monitor urine output
No more NSAIDs
Data Reviewed
-
Radiology: Image Personally Visualized and interpreted (Chest x-ray personally reviewed small left effusion, EKG report personally reviewed sinus rhythm with first-degree AV block at 88 bpm)
[2023-04-22] MEDS: DILAUDID 0.5 MG IV ×2 (08:18→14:23)
--- NOTE | 2023-04-22 08:18 | PHA.VAN.FU ---
Vancomycin Assessment / Plan
- Assessment
Renal Function: SCR Decreasing
WBC's are: Stable
In the past 24 hrs, patient has been: Afebrile
Concomitant Antimicrobials: piperacillin/tazobactam, clindamycin
- Assessment - Therapeutic Drug Monitoring
Random Level: 15.7 - drawn ~9.5H after initial dose of 1500mg
- Dosing Plan
Dosing by Level: Re-dose today (Vanc 1250mg)
- Monitoring Plan
Random Level: 04/22 599
- Follow Up
Pharmacy will continue to follow.
Vancomycin Follow UP
- -
Patient Age: 53
Patient Sex: Male
Vancomycin Day #: 2
Indication: Skin And Soft Tissue
Requesting Provider: Dr. Rodrigues
Pertinent Antimicrobial Allergies:
NKDA
Height / Weight:
Height 6 ft 4 in
Actual Weight 111.9 kg
Pertinent Past Medical History: BMI ~30
- Vital Signs / Lab Results
Temp Pulse Resp BP Pulse Ox
99.6 F 94 25 110/63 97
04/22/23 08:09 04/22/23 06:15 04/22/23 06:15 04/22/23 06:00 04/22/23 06:15
Lab Results - Hematology
04/21/23 04/21/23 04/22/23
16:40 20:46 02:59
WBC 25.1 H 20.8 H 20.3 H
Band Neutrophils 14 H 18 H
Lab Results - Chemistry
04/21/23 04/21/23 04/21/23
16:41 17:10 20:46
BUN Cancelled 101 H* 105 H*
Creatinine Cancelled 5.6 H* 5.0 H*
Estimated Creat Clear Cancelled 18 20
Albumin Cancelled 3.0 L 2.6 L
04/22/23
02:59
BUN 99 H
Creatinine 4.1 H*
Estimated Creat Clear 25
Albumin 2.2 L
04/21/23 04/21/23
16:40 21:00
Lactic Acid 2.4 H 1.8
Microbiology Results
04/21/23 16:55 Gram Stain - Preliminary
Leg - Left
Therapeutic Drug Monitoring
Random Vancomycin 15.7 ug/ml 04/22/23 02:59
--- NOTE | 2023-04-22 08:29 | PTCARENOTE ---
0700 patient in bed. VS 99.6 core/RT upper arm BP 115/82 MAP 92 SR 94; POX 96 /2L RR 32. RT leg pain 5/10 pain scale level. Bicarb at 100/hr via RT AC. Calcium Gluconate completed. AAO x3 chronic unclear slow speech. Taylor draining hiram clear urine
. Will monitor I/O HOB elevated call enriquez within reach
[2023-04-22] MEDS: VANCOCIN 275 MG IV (09:53)
--- NOTE | 2023-04-22 10:32 | W.PN.GS2 ---
Today's Communication / Plan
-
Plan for RTOR tomorrow
IV abx
Assessment / Plan
-
53M with necrotizing soft tissue infection of LLE POD1 s/p I&D in OR
AFVSS, pain improved
Severe sepsis with DONALD appears to be resolving
Labs improving
Nephrology on board
Plan:
OK for diet today, NPO @ [facility] for RTOR tomorrow for washout and dressing change, possible additional debridement
Cont IV abx triple coverage, renal dosing
PRN pain meds, avoid NSAIDs
DVT ppx
Ambulate as able
Subjective Data
-
Date of Service: April 22, 2023
AF, tachycardia resolved, normotensive, feeling better this am, less pain to the leg; Nursing reports abd pads saturated and replaced x2 overnight, reports clear brownish foul smelling fluid, no pus
Objective Data
-
Intake and Output
04/21/23 04/22/23/09/08
06:59 06:59 06:59
Intake Total 2920 / 3020 1130 / 1130
Output Total 1375 / 1575 550 / 550
Balance 1545 / 1445 580 / 580
Intake:
Oral fluids 960 / 960 480 / 480
IV fluids (Total) 1550 / 1650 400 / 400
Sterile Water For Injection 1200 / 1300 400 / 400
1000 ml 1,000 ml @ 100 mls/hr
IV .[id number] KEYA with Sodium
Bicarbonate 150 Meq Rx#:
[id number]
cleocin 50 / 50
normosol 300 / 300
IV piggybacks 410 / 410 250 / 250
Output:
Urine, Taylor 1375 / 1575 550 / 550
Urine, Voided 0 / 0
Vital Signs
Temp Pulse Resp BP Pulse Ox
99.6 F 94 34 115/82 97
04/22/23 08:09 04/22/23 08:45 04/22/23 08:45 04/22/23 08:00 04/22/23 08:45
Lab Results
04/22/23 02:59
Calcium 6.2 mg/dl (8.4-10.2) L* 04/22/23 02:59
Magnesium 2.3 mg/dl (1.6-2.3) 04/22/23 02:59
Total Bilirubin 1.0 mg/dl (0.2-1.3) 04/22/23 02:59
AST 137 U/L (17-59) H 04/22/23 02:59
ALT 79 U/L (0-50) H 04/22/23 02:59
Alkaline Phosphatase 75 U/L (38-126) 04/22/23 02:59
Total Protein 4.9 g/dl (6.3-8.2) L 04/22/23 02:59
Albumin 2.2 g/dl (3.5-5.0) L 04/22/23 02:59
Physical Exam
-
Gen: NAD
LLE: wounds draining well, foul odor persists, erythema and induration improved peau d'orange resolved
--- NOTE | 2023-04-22 10:35 | WOUNDNOTE ---
WOC RN note: [place] texted Dr. aTylor re: Tom Phipps dressing change. Dr. Taylor responded patient was seen already today, plan is return to OR tomorrow, no WOC RN visit for today. Will follow as needed.
--- NOTE | 2023-04-22 11:13 | CON.ID ---
Consultation
-
Date/Time Consultation Requested: 04/22/2023 06:23
Date/Time Consultation Performed: 04/22/2023 1040
Requesting Provider: Dr. Mckeon
Performing Provider: Dr. Soto
Reason for Consultation: Necrotizing left thigh SSTI
Chief Complaint / Past History
History of Present Illness
Tom Phipps is a 53-year-old man without any significant past medical history being evaluated the request of Dr. Mckeon in regards to a necrotizing infection of the left thigh. History is obtained from chart review, along with patient interview.
The patient reports that approximately 2 to 3 weeks ago he began to have a small tender area on the left medial thigh. It remained quiet over that interval, but approximately 2 days prior to admission (on 04/19/2023) he noted marked increase in size
and pain. He also noted increasing redness of the area and induration of the tissue. He also reports that he had some drainage from the area. He saw his PCP yesterday and was sent immediately to the emergency room for assessment. Here he was
found to have a marked leukocytosis. CT imaging of the left thigh noted marked emphysema. The patient was taken to the OR for exploration last evening.
Currently he denies any fevers or chills, and denied having any fevers prior to admission. Pain is currently controlled.
Past History
Past Medical History: None
Past Surgical History: None
Allergy History:
No Known Allergies Allergy (Unverified 04/21/23 15:40)
Medications Reviewed: Yes
Current Antibiotics:
Vancomycin
Clindamycin 900 mg IV every 8 hours
Zosyn 2.25 g IV every 8 hours
Social History
Tobacco: Former Smoker
Alcohol: Occasional
Drug: None
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
Family History
Family History: Not Pertinent
Review of Systems
Vital Signs
Temp Pulse Resp BP Pulse Ox
99.6 F 94 34 115/82 97
04/22/23 08:09 03/06/24 08:45 04/22/23 08:45 04/22/23 08:00 04/22/23 08:45
Physical Exam
Physical Exam
Constitutional: Comfortable, Acutely Ill and Non-toxic
Head: Normocephalic
Eyes: Pupils Equal, Pupils Round, No Conjunctival Hemorrhage and Sclera Anicteric
Oral: No Thrush and No Ulcers
Cardiovascular: Regular Rate and S1/S2; Negative S3/S4 or Murmur
Pulmonary: Clear; Negative Wheezes, Rales or Rhonchi
Gastrointestinal: Soft, Non Tender, Non Distended, Normal Bowel Sounds, No Rebound and No Guarding
Genito-Urinary: Taylor and Turbid Urine; Negative Hematuria
Extremities: Edema and Other (Left thigh wrapped in [place] wrap. Areas of packing noted. Marked foul odor from the area.)
Musculoskeletal: Negative Joint Swelling
Skin: Negative Jaundice
Neurological: Awake and Alert
Psychological: Calm
Lab / Diagnostic Study Results
04/22/23 02:59
Abs Immat Gran (auto) 0.2 10^3/uL (0-0.05) H 04/21/23 16:40
Absolute Neuts (auto) 23.5 10^3/uL (1.4-6.5) H 04/21/23 16:40
Absolute Lymphs (auto) 0.7 10^3/uL (1.2-3.4) L 04/21/23 16:40
Absolute Monos (auto) 0.7 10^3/uL (0.1-0.6) H 04/21/23 16:40
Absolute Basos (auto) 0.0 10^3/uL (0-0.2) 04/21/23 16:40
Total Counted 100 04/22/23 02:59
Immature Gran % 0.7 % (0-0.5) H 04/21/23 16:40
Neutrophils % 93.6 % (42.2-75.2) H 04/21/23 16:40
Lymphocytes % 2.9 % (20.5-51.1) L 04/21/23 16:40
Monocytes % 2.7 % (1.7-9.3) 04/21/23 16:40
Eosinophils % 0.1 % (0-6) 04/21/23 16:40
Basophils % 0.0 % (0-2) 04/21/23 16:40
Abs Neuts (Manual) 19.0 10^3/uL (1.4-6.5) H 04/22/23 02:59
Segmented Neutrophils 76 % (42-75) H 04/22/23 02:59
Band Neutrophils 18 % (0-3) H 04/22/23 02:59
Lymphocytes (Manual) 5 % (20-51) L 04/22/23 02:59
PT 17.6 Sec (11.4-14.6) H 04/21/23 20:46
INR 1.46 04/21/23 20:46
Lactic Acid 1.8 mmol/L (0.7-2.0) 04/21/23 21:00
C-Reactive Protein > 270.00 mg/L (0.0-10.00) H 04/21/23 16:41
Microbiology Results
Micro:
04/21/23 19:45 Wound Culture - Pending
Leg - Left Gram Stain - Preliminary
04/22/23 02:59 MRSA Screen - Pending
Nose
04/21/23 19:45 Anaerobic Culture - Pending
Leg - Left
04/21/23 16:55 Wound Culture - Pending
Leg - Left Gram Stain - Preliminary
04/21/23 16:43 Blood Culture - Pending
Blood/Venous
04/21/23 16:41 Blood Culture - Pending
Blood/Venous
Imaging:
04/21/2023 CT left lower extremity: Marked widespread soft tissue gas throughout the superficial fatty soft tissue of virtually the entire proximal and mid left thigh as well as some superficial edematous changes. Deep soft tissue infection cannot be
excluded. Please see full dictation for additional detail. Film personally viewed.
Assessment / Plan
Necrotizing left thigh SSTI
Marked leukocytosis
DONALD
Transaminitis
Elevated CK
Elevated CRP
Recommendations:
Cultures from the OR are currently pending.
Malodor is suggestive of an anaerobic infection. Gram stain has revealed gram-positive cocci and gram-negative rods. This is likely a synergistic infection
Continue with vancomycin and clindamycin
Change Zosyn to meropenem dosed for renal insufficiency.
Await further culture data to guide antimicrobial selection and de-escalation.
Patient for return to OR tentatively tomorrow.
Monitor WBC, CK, LFTs, creatinine and CrCl.
Patient critically ill and intensive care unit.
Care Review
Plan reviewed with: Physician (Nephrology, Critical Care)
[2023-04-22] MEDS: TYLENOL 1000 MG PO ×3 (12:00→23:43)
[2023-04-22] MEDS: STERILE WATER FOR INJECTION 20 ML IV (12:00)
[2023-04-22] MEDS: MERREM 1000 MG IV (12:00)
[2023-04-22] MEDS: ROXICODONE 5 MG PO (12:14)
[2023-04-22 13:13] LABS: Ionized Calcium 0.92 mMOL/L (1.15-1.33)
--- NOTE | 2023-04-22 13:36 | CM ---
CM following re: discharge planning.
Discussed in rounds, reviewed pt's chart, met with pt.
Pt is a 53 year old male, admitted with primary dx of Sepsis (leukocytosis, tachycardia, tachypnea) secondary to �Necrotizing soft tissue infection of the left thigh. S/P �Incision and debridement of necrotizing soft tissue infection of the thigh
by Dr Taylor on 04/20.
Pt reports he livers alone in a 2SH, 2 steps to enter, has supportive son Tom who lives nearby and helps as needed. Pt reports he ambulates with a walker and a cane, works at [employer]. Pt expressed his concerns regarding applying for a short
term disability. Information provided and pt advised to coordinate it with corporate 08/26 department [phone].
PT/OT will evaluate the pt to determine a level of care at discharge.
PCP: [facility].
Pharmacy: [facility].
D/C plan: uncertain at this time and will depend on treatment plan and functional evaluation.
CM will follow with discharge plan updates as hospitalization progresses
[2023-04-22 14:10] LABS: ALT (SGPT) 90 U/L (0-50); AST (SGOT) 164 U/L (17-59); Albumin 2.5 g/dl (3.5-5.0); Alkaline Phosphatase 75 U/L (38-126); Blood Urea Nitrogen 102 mg/dl (9-20); Calcium 6.9 mg/dl (8.4-10.2); Carbon Dioxide 19 mmol/L (22-30); Chloride 93 mmol/L (98-107); Estimated Creatinine Clearance 30 ml/min; Glucose 122 mg/dl (70-99); Magnesium 2.6 mg/dl (1.6-2.3); Phosphorus 7.3 mg/dl (2.5-4.5); Potassium 3.6 mmol/L (3.5-5.1); Sodium 128 mmol/L (135-145); Total Bilirubin 1.2 mg/dl (0.2-1.3); Total Protein 5.5 g/dl (6.3-8.2); eGFR 20.47
--- NOTE | 2023-04-22 15:05 | OR.RPT ---
Addendum entered and electronically signed by Oren Taylor MD 04/23/23 12:15:
CDI query:
Excisional debridement performed with #10 blade. Skin, subcutaneous fat and fascia was excised down to the level of the fascia. Wound dimensions as below.
Original Note:
Operative Report
Operative Report
Primary Surgeon:� Brandon
Pre-op Diagnosis:� Necrotizing soft tissue infection of the thigh
Post-op Diagnosis: � Same
Procedure Performed:� Incision and debridement of necrotizing soft tissue infection of the thigh
Anesthesia Type:� LMA
Specimen / Cultures:� Deep wound Cx
Estimated Blood Loss:� 15cc
Complications:� None immediate
Operative Findings:� Foul smelling cloudy drainage from a skin defect in the lateral left groin crease, this was bluntly explored and tracked posteriorly to the perianal subcutaneous tissue, tank-laterally toward the ASIS, and inferiorly toward
the knee joint. Several full thickness counter incisions were made with a #10 blade to promote drainage. The wound cavity was thoroughly irrigated with warm sterile saline. A single saline moist kerlix was used to pack the wounds which all
communicate with a large subcutaneous pocket encompassing the anterior left thigh ([id number])
Date of Surgery: 04/21/23
Indications: This 53M developed a necrotizing soft tissue infection of his left lower extremity and developed severe sepsis with DONALD. Emergent incision and drainage in the operating room was planned.
PROCEDURE: After informed consent was obtained, the patient was brought to the operative suite and placed supine on the operating table. General anesthesia was induced with LMA. The left thigh was prepped and draped in the usual sterile fashion.
Time-out was completed. A skin defect was identified at the proximal medial left thigh. This was probed initially digitally and later with the FaceRiguer device with return of foul smelling turbid fluid. The subcutaneous space was probed laterally to
the ASIS and inferiorly to just above the knee. Several counter incisions were made with the #10 blade to promote drainage. The wounds were all joined together with blunt dissection to create a single wound cavity. The wound was then thoroughly
irrigated with sterile saline. The wounds were packed with saline moistened kerlix, covered with abd pads and sujit wrap. All surgical counts were reported as correct.
The patient tolerated the procedure well and was taken to the PACU in stable condition.
--- NOTE | 2023-04-22 15:26 | PTCARENOTE ---
AAO x3 left upper thigh areas post up packing continues in place , areas re-enforced with ABDs + thin brown discharge large amount foul smelling . Dilaudid prn adm with pain relieved
[2023-04-22] MEDS: STERILE WATER FOR INJECTION 10 ML IV ×2 (16:46→23:42)
[2023-04-22] MEDS: MERREM 500 MG IV ×2 (16:47→23:42)
--- NOTE | 2023-04-22 19:09 | SUR.OPER ---
patient in bed. ABD to left thigh dressing reapplied. SR 78. BP stable. after tylenol core temp 98.9. call enriquez within reach Bicarb 150 meq at 100 infusing per order call enriquez within reach
--- NOTE | 2023-04-22 20:45 | PTCARENOTE ---
Pt received from previous shift in bed. AAOx3, pleasant, speech slurred/garbled at times. Telemetry = SR w/1st degree AV block. Full physical assessment documented (refer to worklist). L thigh dressing w/sujit wrap c/d/i. Thermistor Taylor
w/cloudy yellow urine. RW INT removed as occluded and partially out. #20 RFA with Sterile H20 w/150 meq NaHCO3 at 100 mL. #20 LAC INT patent for intermittent antibiotics. Pt reports no pain at time of assessment. Assisted with repostioning.
Call enriquez within reach. Monitoring continues.
[2023-04-22] MEDS: HEPARIN 5000 UNITS SC (21:22)
[2023-04-22] MEDS: CALCIUM GLUCONATE 10% INJECTION 130 MG IV (21:23)
[2023-04-22] MEDS: TUMS 2 TABLET PO (22:49)
[2023-04-23] VITALS (27 sets, daily range): BP systolic 88–118; BP diastolic 57–85; BMI 30.3
[2023-04-23 00:04] LABS: Complement C3 109 mg/dl (88-165)
--- NOTE | 2023-04-23 00:10 | PTCARENOTE ---
Pt appears to be sleeping upon hourly rounds. Offers no complaints. Assessment unchanged from previous. Call enriquez within reach. Monitoring continues.
[2023-04-23 05:08] LABS: Ionized Calcium 0.93 mMOL/L (1.15-1.33)
[2023-04-23] MEDS: CLEOCIN 50 IV ×3 (05:40→21:33)
[2023-04-23] MEDS: TYLENOL 1000 MG PO ×3 (05:40→17:20)
[2023-04-23 05:41] LABS: Vancomycin Random 14.7 ug/ml
--- NOTE | 2023-04-23 05:55 | PTCARENOTE ---
Complete bed bath, CHG cloths and linen change completed. L thigh sujit removed, new ABD pads placed and secured with sujit wrap.
[2023-04-23 05:58] LABS: Blood Urea Nitrogen 90 mg/dl (9-20); Calcium 6.8 mg/dl (8.4-10.2); Carbon Dioxide 27 mmol/L (22-30); Chloride 93 mmol/L (98-107); Creatine Phosphokinase 238 U/L (55-170); Estimated Creatinine Clearance 39 ml/min; Glucose 125 mg/dl (70-99); Potassium 3.5 mmol/L (3.5-5.1); Sodium 128 mmol/L (135-145); eGFR 28.24
--- NOTE | 2023-04-23 06:29 | W.PN.HOSP.TC ---
Today's Communication/Plan
-
.
Assessment / Plan
Assessment / Plan
Physical Exam
General: ill looking, no respiratory distress
HEENT: Normocephalic, Moist mucous membranes and Atraumatic
Respiratory: Clear
Cardiac: S1/S2 and Regular Rhythm; No Murmur or Rub
GI: Soft, Non Tender, Non Distended and Normal Bowel Sounds; No Organomegaly
Rectal: no bleeding
Musculoskeletal: No Clubbing, No Cyanosis and No Edema
Skin: wound in left upper thigh area with packing inside and + discharge, foul smelling, No Rash
Neuro: Nonfocal/grossly intact
Psych: no agitation
# Sepsis (leukocytosis, tachycardia, tachypnea) secondary to �Necrotizing soft tissue infection of the left thigh
s/p �Incision and debridement of necrotizing soft tissue infection of the thigh by Dr Taylor on 04/20. Plan for further wound debridement 04/22.
Wound culture preliminary report showing diphtheroids
Good improvement, sepsis seems to be controlled.
Afebrile last night
no significant pain
Borderline low BP but did not need pressure support
HR is better controlled.
c/w support
Broad spectrum AB
wound care per surgery
WBC is at 17 from 25
-CT scan of left lower extremity: Marked widespread bubbles of air throughout the superficial fatty soft tissues of virtually the entire proximal and mid left thigh
f/w blood cultures
f/w wound cultures
Appreciate surgery, ID & ICU doctors input
# DONALD secondary to sepsis exacerbated by NSAID use
# Anion gap metabolic acidosis with lactic acidosis
Creatinine is down to 2.6 from 5.6
+ urine out put in Taylor
Maintain Taylor for now
c/w IVF
Renal US : Unremarkable with no hydronephrosis
Urine positive for occult blood and moderate bacteria slight leukocytes, positive for uric acid crystals
A appreciate nephrology input
# Prolonged QTc secondary to acidosis
-EKG shows normal sinus rhythm
QT within an average
# Acute blood loss anemia.
Mild
c/w to monitor
# Ischemic hepatitis , presented with Transaminitis in the setting of sepsis
-Continue to monitor
Ast/ALT are coming down
Ok to use Tylenol
No abd pain
# Hyponatremia
c/w IVF NS
Full code
DVT prophylaxis�SCDs
Total time spent to see the patient, examine the patient on the floor, review data and lab results, discuss treatment plan with patient, nursing staff around 57 minutes
Anticipated Discharge: > 48 hours
Subjective/Interval History
-
Date of Service: April 23, 2023
No significant pain in leg
slept well, denies fevers or chills
No chest pain
Objective Data
-
Labs:
Laboratory Results
04/23/23
04:52
WBC Pending
Hgb Pending
Hct Pending
Plt Count Pending
Sodium 128 L
Potassium 3.5
Chloride 93 L
Carbon Dioxide 27
BUN 90 H
Creatinine 2.6 H
Glucose 125 H
Calcium 6.8 L*
Vital Signs:
Vital Signs
Temp Pulse Resp BP Pulse Ox
98.2 F 70 28 102/67 95
04/23/23 00:15 04/23/23 04:15 04/23/23 04:15 04/23/23 04:00 04/23/23 04:15
I&O
04/21/23 04/22/23 04/23/23
06:59 06:59 06:59
Intake Total 2920 / 3020 5320 / 5320
Output Total 1375 / 1575 2550 / 2550
Balance 1545 / 1445 2770 / 2770
[2023-04-23 06:38] LABS: Urine Albumin Trace (Neg - Trace); Urine Bilirubin Negative (Negative); Urine Character Clear (Clear); Urine Color Yellow; Urine Glucose 1+ (Negative); Urine Ketone Negative (Negative); Urine Leukocyte Negative (Negative); Urine Nitrite Negative (Negative); Urine Occult Blood 2+ (Negative); Urine Specific Gravity 1.015 (<1.030); Urine Urobilinogen Negative (Neg - 1+)
[2023-04-23] MEDS: CALCIUM GLUCONATE 130 MG IV (06:38)
[2023-04-23 06:44] LABS: Hematocrit 30.7 % (39.0-52.0); Hemoglobin 11.6 g/dL (13.0-18.0); Mean Corp Hgb Conc. 37.8 g/dL (33.0-37.0); Mean Corpuscular Hgb 31.9 pg (27.0-31.0); Mean Corpuscular Volume 84.3 fL (80.0-94.0); Mean Platelet Volume 11.3 fL (7.4-10.4); Platelet Count 217 10^3/uL (130-400); Red Blood Cell Count 3.64 10^6/uL (4.70-6.10); Red Cell Dist. Width 12.1 % (11.5-14.5); White Blood Cell Count 17.7 10^3/uL (4.8-10.8)
--- NOTE | 2023-04-23 07:14 | W.PN.INTV ---
Today's Communication / Plan
Recommendations
Return to OR today for re-eval
Continue abx per ID
Creat trending down, acidosis resolved--renal following
Replete electrolytes as needed
Continued observation in ICU postoperatively
Assessment
-
Patient is a 53-year-old male with no significant past medical history presenting to ER for subacute left leg pain and swelling.� 2 weeks ago, patient noted a small palpable lesion in the left thigh with mild TTP but no surrounding erythema.
This rapidly worsened in the past 48 hours with new drainage and worsening pain.� He has developed associated decreased PO intake and decreased urine output at the same time. In ER, noted to have severe metabolic acidosis and DONALD. Due to suspicion
for necrotizing fasciitis he underwent emergent incision and debridement of the thigh. Admitted to ICU postop.
Severe life-threatening necrotizing fasciitis status post emergent I&D 04/22/23
Return to OR 04/23/23
Severe metabolic acidosis
Acute kidney injury, creatinine 5.6
Hyponatremia
Hypocalcemia
Mild transaminitis
Leukocytosis
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
Anxiety disorder� �
Arthritis� �
Cataract-lens implants� �
Hernia repair� �
S/p deviated septum repair� �
Right knee arthroscopy� �
Current smoker
Plan
No current signs of metabolic encephalopathy or MS changes/following commands
Baseline MS reported as AAO x 3
Pain control
Pain/sedation: tylenol scheduled, dilaudid PRN
RASS goals: 0
Hemodynamically stable, not requiring pressors.
Cardiac history reviewed--none
No prior ECHO for review
Monitor on telemetry
Oxygen needs: stable on RA
Prior history of lung disease: none but he is a chronic smoker/no PFTs for review
Smoking cessation
Supplemental O2 as indicated to maintain sats > 89%
CXR/CT reviewed indicating NAD, repeat testing as needed
Diet advanced per surgery
Aspiration precautions, HOB > 30 degrees
Speech therapy eval can be considered if at elevated risk
GI prophylaxis if indicated for mechanical ventilation >48 hours, prior history of GERD, stress ulcer formation in the critically ill
DONALD present likely due to presumed sepsis/acidosis, improving
Nephrology consult obtained
No history of renal disease
Void trials
Follow urine output, critical I/Os
Replete electrolytes as needed: Ca, check Mg/phos
Acid/base status: acidosis improved, repeat labs trending down
Fever and increased WBC on presentation, nec fasc noted on CT--urgent finding with rapid progression in 48 hours
s/p urgent I&D 04/21/23, surgery following
Return to OR today
Started on empiric antibiotics, ID consult obtained
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
Follow fever trend, WBC count
Lactate elevated on admission, continue to trend until <2
CBC stable, no signs of bleeding or coagulopathy.
DVT prophylaxis as assessed based on risk, including mechanical SCDs
Can transfuse if indicated for Hb <7, plt < 10
INR WNL
No prior h/o diabetes or thyroid disease
Monitor accuchecks PRN/SS coverage if needed
Diagnostic Data
Chest X-Ray: no acute process
CT Scan: LE 04/21/23- Marked widespread bubbles of air throughout the superficial fatty soft tissues of virtually the entire proximal and mid left thigh as well as some superficial edematous changes, suspicious for at least superficial soft tissue
infection. On the basis of this study, deep soft tissue infection of the left side cannot be excluded. No findings to confirm bubbles of air within the deep soft tissues/muscles of the left thigh. Evaluation for abnormal focal fluid collection such
as a soft tissue abscess markedly limited without intravenous contrast.
Echo:
PFT's:
Reports and relevant images were personally reviewed.
-----
Critical Care time 35 mins -- The patient is admitted for acute critical illness for the treatment of vital organ failure and/or prevention of further life-threatening conditions. Total care includes time spent in review of history, physical exam,
medications, hemodynamic/ventilator parameters, laboratory data, imaging and discussion with house staff, pharmacy, respiratory therapy, rn appeals, and nursing.
Subjective Dataa
Subjective Data
Date of Service:
Date of Service: April 23, 2023
Chief Complaint: Setup Technician Follow Up
Subjective:
returned to OR today
no new events ON
Objective Data
Data Reviewed
Vital Signs / I&O / Oxygen:
Vital Signs
Temp Pulse Resp BP Pulse Ox
97.3 F 72 20 110/74 97
04/23/23 04:30 04/23/23 06:30 04/23/23 06:30 04/23/23 06:00 04/23/23 06:30
Intake and Output
04/22/23 04/23/23 04/24/23
06:59 06:59 06:59
Intake Total 2920 / 3020 5600 / 5600
Output Total 1375 / 1575 2730 / 2730
Balance 1545 / 1445 2870 / 2870
SaO2 97
Nasal Cannula flow liters per 2
minute
Physical Exam
General: Comfortable and Other (NAD)
HEENT: Normocephalic, Anicteric and Moist Mucous Membranes
Cardiovascular: S1-S2 and Regular Rhythm
Respiratory: Clear and Non-Labored Respirations
GI: Soft, Non Distended and Non Tender
Neurology: Awake, Alert, Oriented, AO x 3 and No Motor Deficits
Skin: Warm, Dry and Other (drainage/dressings on L thigh)
Labs/Micro/Reports
Lab Data
04/23/23 04:52
04/23/23 04:52
Microbiology
04/21/23 16:43 Blood/Venous Blood Culture - Preliminary
No Growth in 24 hours- Final report to follow
04/21/23 16:41 Blood/Venous Blood Culture - Preliminary
No Growth in 24 hours- Final report to follow
04/21/23 19:45 Leg - Left Anaerobic Culture - Preliminary
Culture pending. Anaerobic cultures are examined after 3
days incubation. Additional information to follow.
04/21/23 16:55 Leg - Left Wound Culture - Preliminary
Diptheroids
04/21/23 16:55 Leg - Left Gram Stain - Preliminary
04/21/23 19:45 Leg - Left Gram Stain - Preliminary
[2023-04-23 07:21] LABS: Urine Bacteria Moderate (Negative); Urine Red Blood Cell 0-2 /HPF (0-2)
[2023-04-23 07:23] LABS: Urine Uric Acid Crystals Seen
[2023-04-23 07:25] LABS: Urine Granular Cast 0-2 /LPF (0)
[2023-04-23] MEDS: MERREM 500 MG IV ×2 (07:32→15:43)
[2023-04-23] MEDS: STERILE WATER FOR INJECTION 10 ML IV ×2 (07:32→15:43)
[2023-04-23] MEDS: HEPARIN 5000 UNITS SC ×2 (07:32→19:44)
[2023-04-23 07:38] LABS: Protein/creatinine Ratio 0.7; Urine Protein 50 mg/dl
--- NOTE | 2023-04-23 07:56 | PTCARENOTE ---
report received, assessments per work list. patient transported to the OR without issue. hand off report to OR staff
--- NOTE | 2023-04-23 08:12 | W.PN.NEPH.PH ---
Today's Communication / Plan
-
Maintain Taylor
Maintain isotonic saline
Assessment/Plan
-
Impression:
Acute kidney injury
Hyponatremia
Anion gap metabolic acidosis
Sepsis (leukocytosis, tachycardia, tachypnea) secondary to suspected necrotizing fasciitis of left lower extremity
Abnormal LFTs/elevated CPK
Plan:
Acute kidney injury likely a function of prerenal stimulus in setting of sepsis versus NSAID induced injury
Creatinine improving to 2.6 and remains grossly nonoliguric
Zosyn renally dose (cultures pending)_blood cultures negative thus far wound culture notable for diphtherioids
obtained urinalysis: trace albumin 2 plus blood and kidney and bladder ultrasound:normal
Maintain MAP greater than 65 to augment renal perfusion pressure
Replete calcium again
Metabolic acidosis improved with alkaline IV fluid
Remains hypotensive
hyponatremia persists, add fluid restriction 50oz
No need for dialysis
No more NSAIDs
-
-
Date of Service: April 23, 2023
CC / HPI / ROS
-
Chief Complaint:
Acute kidney injury
History of Present Illness:
Creatinine improved to 2.6
Hemodynamically labile
Metabolic acidosis improved with alkaline IV fluid
Review of Systems:
Nonoliguric via Taylor
Fevers noted
Labs
-
Labs:
WBC 17.7 10^3/uL (4.8-10.8) H 04/23/23 04:52
RBC 3.64 10^6/uL (4.70-6.10) L 04/23/23 04:52
Hgb 11.6 g/dL (13.0-18.0) L 04/23/23 04:52
Hct 30.7 % (39.0-52.0) L 04/23/23 04:52
Plt Count 217 10^3/uL (130-400) 04/23/23 04:52
Sodium 128 mmol/L (135-145) L 04/23/23 04:52
Potassium 3.5 mmol/L (3.5-5.1) 04/23/23 04:52
Chloride 93 mmol/L (98-107) L 04/23/23 04:52
Carbon Dioxide 27 mmol/L (22-30) 04/23/23 04:52
BUN 90 mg/dl (9-20) H 04/23/23 04:52
Creatinine 2.6 mg/dL (0.7-1.3) H 04/23/23 04:52
eGFR 28.24 04/23/23 04:52
Glucose 125 mg/dl (70-99) H 04/23/23 04:52
Calcium 6.8 mg/dl (8.4-10.2) L* 04/23/23 04:52
Phosphorus 7.3 mg/dl (2.5-4.5) H 04/22/23 12:39
Albumin 2.5 g/dl (3.5-5.0) L 04/22/23 12:39
Physical Exam
-
Vital Signs:
Vital Signs
Temp Pulse Resp BP Pulse Ox
97.5 F 69 19 101/67 96
04/23/23 07:30 04/23/23 08:00 04/23/23 08:00 04/23/23 08:00 04/23/23 08:00
Cardiovascular:: Regular rate and rhythm
Respiratory:: Bilateral: Coarse
Lung Excursion:: Normal
Abdomen:: Nontender
Bowel Sounds:: Normal
Extremity Edema:: +1: Bilateral:
Taylor Catheter: Yes
--- NOTE | 2023-04-23 08:16 | W.SUR.PREOP ---
Pre-Operative Surgical Note
-
I have examined this patient prior to the performance of the scheduled procedure.
The patient's condition is unchanged from the time of the current History and
Physical and the patient is able to undergo the scheduled procedure.
[2023-04-23] MEDS: SODIUM BICARBONATE IV (08:34)
--- NOTE | 2023-04-23 08:49 | PHA.VAN.FU ---
Vancomycin Assessment / Plan
- Assessment
Renal Function: SCR Decreasing
WBC's are: Trending Down
In the past 24 hrs, patient has been: Afebrile
Concomitant Antimicrobials: Clindamycin, Meropenem
- Assessment - Therapeutic Drug Monitoring
Random Level: 14.7
- Dosing Plan
Dosing by Level: Re-dose today (1250mg)
- Monitoring Plan
Random Level: 04/24/23 @0600
- Follow Up
Pharmacy will continue to follow.
Vancomycin Follow UP
- -
Patient Age: 53
Patient Sex: Male
Vancomycin Day #: 3
Indication: Skin And Soft Tissue
Requesting Provider: Dr. Rodrigues
Pertinent Antimicrobial Allergies:
NKDA
Height / Weight:
Height 6 ft 4 in
Actual Weight 112.7 kg
Pertinent Past Medical History: BMI ~30
- Vital Signs / Lab Results
Temp Pulse Resp BP Pulse Ox
97.5 F 69 19 101/67 96
04/23/23 07:30 04/23/23 08:00 04/23/23 08:00 04/23/23 08:00 04/23/23 08:00
Lab Results - Hematology
04/21/23 04/21/23 04/22/23
16:40 20:46 02:59
WBC 25.1 H 20.8 H 20.3 H
Band Neutrophils 14 H 18 H
04/23/23
04:52
WBC 17.7 H
Band Neutrophils
Lab Results - Chemistry
04/21/23 04/21/23 04/21/23
16:41 17:10 20:46
BUN Cancelled 101 H* 105 H*
Creatinine Cancelled 5.6 H* 5.0 H*
Estimated Creat Clear Cancelled 18 20
Albumin Cancelled 3.0 L 2.6 L
04/22/23 04/22/23 04/23/23
02:59 12:39 04:52
BUN 99 H 102 H* 90 H
Creatinine 4.1 H* 3.4 H 2.6 H
Estimated Creat Clear 25 30 39
Albumin 2.2 L 2.5 L
04/21/23 04/21/23
16:40 21:00
Lactic Acid 2.4 H 1.8
Lab Results - Urine
04/23/23
06:07
Urine Nitrite Negative
Ur Leukocyte Esterase Negative
Urine WBC 3-5
Urine Bacteria Moderate A
Microbiology Results
04/22/23 02:59 MRSA Screen - Final
Nose No Methicillin Resistant Staphylococcus aureus isolated.
04/21/23 16:43 Blood Culture - Preliminary
Blood/Venous No Growth in 24 hours- Final report to follow
04/21/23 16:41 Blood Culture - Preliminary
Blood/Venous No Growth in 24 hours- Final report to follow
04/21/23 19:45 Anaerobic Culture - Preliminary
Leg - Left Culture pending. Anaerobic cultures are examined after 3
days incubation. Additional information to follow.
04/21/23 16:55 Wound Culture - Preliminary
Leg - Left Diptheroids
Gram Stain - Preliminary
04/21/23 19:45 Gram Stain - Preliminary
Leg - Left
Therapeutic Drug Monitoring
Random Vancomycin 14.7 ug/ml 04/23/23 04:52
[2023-04-23 09:30] LABS: ASO Quantitative 400 IU/ml (<200); Anti Streptolysin Positive (Negative)
--- NOTE | 2023-04-23 10:03 | W.IMMPOSTOP ---
Addendum entered and electronically signed by Alex Larios MD 04/23/23 10:30:
#[id number]
Original Note:
Surgical Immed Post Op Note
-
Primary Surgeon: Ric
Assisting Surgeon: None
Pre-op Diagnosis: Left/groin/lower extremity necrotizing fasciitis and necrotizing soft tissue infection
Post-op Diagnosis: Same
Procedure Performed: Extensive excisional sharp debridement left groin, lower extremity necrotizing soft tissue infection
Anesthesia Type: LMA
Specimen / Cultures: None today
Estimated Blood Loss: 30 mL
Complications: None immediate
Operative Findings: Completely necrotic subcutaneous fat extending from the left groin down to the left knee to the fascial level but not intramuscular. Necrotic dermis as well over areas. Open excisional debridement left groin area towards base
of scrotum 15 cm x 5 cm with 2 to 3 cm undermining. Open excisional debridement anterior wounds and necrotic subcutaneous fat and partial fascia but not intramuscular. Open wound is 42 cm from left groin to knee. 8 cm wide wound. 15 cm
undermining laterally, 5cm undermining medially. packed with Betadine kerlex.
Plan: will need return to OR tomorrow
updated patient's mother via phone call; message left for son
[2023-04-23] MEDS: NSS 1000 IV ×2 (10:14→19:43)
[2023-04-23] MEDS: VANCOCIN 275 MG IV (10:14)
[2023-04-23] MEDS: ZOFRAN 4 MG IV ×2 (10:29→19:47)
[2023-04-23] MEDS: DILAUDID 0.5 MG IV (10:36)
--- NOTE | 2023-04-23 10:54 | PTCARENOTE ---
received direct back from OR. reassessed. crackles noted right base. left leg dressing intact, sujit over top. patient medicated with Zofran for c/o nausea, Dilaudid for pain. scd removed from left leg due to large striated bruising underneath. temp
96.2 core. warm blankets applied. call enriquez in reach
[2023-04-23] MEDS: COLACE 100 MG PO ×2 (11:44→19:47)
--- NOTE | 2023-04-23 11:45 | W.PN.ID1 ---
Date of Service
Date of Service: April 23, 2023
Today's Communication
Continue antibiotics. See below�
Assessment / Plan
Severe necrotizing left thigh SSTI
- cultures with Gp G strep. GNR's also seen on gram stain.
Marked leukocytosis
- improved.
DONALD
- improved
Transaminitis
Elevated CK
Elevated CRP
Recommendations:
Cultures from the reviewed.
Malodor is suggestive of an anaerobic component. Gram stain has revealed gram-positive cocci and gram-negative rods, indicating a synergistic infection
Continue with meropenem and clindamycin. Discontinue further vancomycin.
Await further culture data to guide antimicrobial selection and de-escalation.
Patient for return to OR tentatively tomorrow.
Monitor WBC, CK, LFTs, creatinine and CrCl.
Patient critically ill and intensive care unit.
����������������������������������������������������������
Chief Complaint
-: Leukocytosis and Other (Necrotizing SSTI of left thigh)
Subjective / Review of Systems
Patient seen and examined. Reports feeling slightly improved today. He has just returned from the OR.
Vital Signs / Physical Exam
Vital Signs
Vital Signs
Temp Pulse Resp BP Pulse Ox
96.7 F L 75 27 95/64 97
04/23/23 11:31 04/23/23 11:15 04/23/23 11:15 04/23/23 11:00 04/23/23 11:15
Physical Exam
Constitutional: Acutely Ill and Non-toxic
Eyes: Sclera Anicteric
Cardiovascular: S1/S2; Negative S3/S4
Pulmonary: Non Labored; Negative Wheezes or Rales
Gastrointestinal: Soft and Non Tender
Extremities: Edema
Wound: Other (Left thigh packed, dressed and wrapped.)
Neurological: Awake and Alert
Psychological: Calm
Objective Data
Lab Data
Lab Results
04/23/23 04:52
04/23/23 04:52
PT 17.6 Sec (11.4-14.6) H 04/21/23 20:46
INR 1.46 04/21/23 20:46
APTT 25.8 Sec (23.4-35.0) 04/21/23 20:46
Estimated Creat Clear 39 ml/min 04/23/23 04:52
Lactic Acid 1.8 mmol/L (0.7-2.0) 04/21/23 21:00
Total Bilirubin 1.2 mg/dl (0.2-1.3) 04/22/23 12:39
AST 164 U/L (17-59) H 04/22/23 12:39
ALT 90 U/L (0-50) H 04/22/23 12:39
Alkaline Phosphatase 75 U/L (38-126) 04/22/23 12:39
C-Reactive Protein > 270.00 mg/L (0.0-10.00) H 04/21/23 16:41
Most recent labs reviewed.
Micro Results:
04/21/23 19:45 Anaerobic Culture - Preliminary
Leg - Left Culture pending. Anaerobic cultures are examined after 3
days incubation. Additional information to follow.
04/21/23 19:45 Wound Culture - Preliminary
Leg - Left Group G Streptococcus
Gram Stain - Preliminary
04/21/23 16:55 Wound Culture - Final
Leg - Left Diptheroids
Group G Streptococcus
Coagulase neg. staphylococcus
Gram Stain - Preliminary
04/22/23 02:59 MRSA Screen - Final
Nose No Methicillin Resistant Staphylococcus aureus isolated.
04/21/23 16:43 Blood Culture - Preliminary
Blood/Venous No Growth in 24 hours- Final report to follow
04/21/23 16:41 Blood Culture - Preliminary
Blood/Venous No Growth in 24 hours- Final report to follow
Imaging:
04/21/2023 CT left lower extremity: Marked widespread soft tissue gas throughout the superficial fatty soft tissue of virtually the entire proximal and mid left thigh as well as some superficial edematous changes. Deep soft tissue infection cannot be
excluded. Please see full dictation for additional detail. Film personally viewed.
--- NOTE | 2023-04-23 11:48 | PN.CDI ---
CDI
- -
CDI:
Physician Documentation Request
Admit Date: 04/21/23 19:14
Dear Doctor Brandon,
Please review the following and provide your response in the progress notes.
Clinical Indicators:
- 3.5 Operation report ' Incision and debridement of necrotizing soft tissue infection of the thigh'
Could you provide, in the progress notes further clarification regarding the debridement.
Please specify the type of debridement performed:
1. Excisional Debridement - defined as removal by excision of devitalized tissue, necrosis or slough
2. Non-excisional debridement - defined as removal of devitalized tissue, necrosis or slough by such methods as irrigation, brushing, scrubbing or washing.
If the debridement was excisional, please also include:
1. Type of instrument used (#11 blade, #15 blade etc.)
2. What was excised (necrotic tissue, gangrenous tissue, slough etc.)
For excisional or non-excisional, please also include:
1. Depth of debridement (skin, subcutaneous tissue, fascia, muscle, bone etc)
2. Size and appearance of the wound (L, W, D, color of wound, drainage)
Use of terms such as suspected, likely, concern for, or probable (associated with a specific diagnosis that is being evaluated, monitored, or treated as if it exists) are acceptable and can be coded in the inpatient setting, when documented at the
time of discharge.
Thank you,
Lashay Armstrong RN
CDI Specialist
Please use your independent medical judgment in providing your response.
[2023-04-23] MEDS: PROTONIX 20 MG PO (13:52)
--- NOTE | 2023-04-23 15:11 | CM ---
CM following re: discharge planning.
Discussed in rounds, reviewed pt's chart, met with pt. per Rounds meeting OR today for extensive excisional sharp debridement left groin and again tomorrow. ID following.
D/C plan: uncertain at this time and will depend on treatment plan upon the discharge.
CM will follow with discharge plan updates as hospitalization progresses
--- NOTE | 2023-04-23 20:00 | PTCARENOTE ---
Received patient at 1900. Pt. alert and oriented. Says pain level is currently manageable at 2-3. Heart rhythm is sinus. Blood pressure normotensive. Currently on room air. Lungs sound coarse, diminished. Pt. ordered regular diet, NPO at midnight.
Nausea and hiccups noted. PRN IV Zofran given. Taylor catheter in place, draining without issue. Skin as documented. Plan for OR tomorrow for another washout. Discussed plan of care. Vital signs stable at this time.
[2023-04-23] MEDS: SENOKOT 8.59999999999999964 MG PO (21:33)
[2023-04-24] VITALS (19 sets, daily range): BP systolic 106–130; BP diastolic 68–77; BMI 30.7
--- NOTE | 2023-04-24 | PTCARENOTE ---
Pt. assessment unchanged. Pt in bed. No complaints of pain or discomfort. Has not needed any PRN pain medication. He states pain is at a good level with scheduled doses of Tylenol. Zofran given earlier for nausea. Patient not complaining of nausea
currently. Vital signs stable at this time.
[2023-04-24] MEDS: TYLENOL 1000 MG PO ×4 (00:05→16:43)
[2023-04-24] MEDS: MERREM 500 MG IV ×4 (00:06→20:10)
[2023-04-24] MEDS: STERILE WATER FOR INJECTION 10 ML IV ×4 (00:06→20:10)
[2023-04-24 03:23] LABS: Ionized Calcium 0.96 mMOL/L (1.15-1.33)
[2023-04-24 03:55] LABS: Blood Urea Nitrogen 66 mg/dl (9-20); Carbon Dioxide 28 mmol/L (22-30); Chloride 97 mmol/L (98-107); Estimated Creatinine Clearance 68 ml/min; Glucose 134 mg/dl (70-99); Potassium 3.5 mmol/L (3.5-5.1); Sodium 134 mmol/L (135-145); eGFR 54.64
--- NOTE | 2023-04-24 04:00 | PTCARENOTE ---
Pt. assessment remains unchanged. AM labs drawn. Vital signs stable at this time.
[2023-04-24 04:31] LABS: Hematocrit 32.5 % (39.0-52.0); Mean Corp Hgb Conc. 36.9 g/dL (33.0-37.0); Mean Corpuscular Volume 86.7 fL (80.0-94.0); Mean Platelet Volume 10.9 fL (7.4-10.4); Platelet Count 240 10^3/uL (130-400); Red Blood Cell Count 3.75 10^6/uL (4.70-6.10); Red Cell Dist. Width 12.6 % (11.5-14.5); White Blood Cell Count 21.4 10^3/uL (4.8-10.8)
[2023-04-24] MEDS: ROXICODONE 5 MG PO ×3 (05:11→20:19)
[2023-04-24] MEDS: CLEOCIN 50 IV ×2 (05:12→15:30)
[2023-04-24] MEDS: NSS 1000 IV (05:12)
[2023-04-24] MEDS: CALCIUM GLUCONATE 130 MG IV (06:15)
--- NOTE | 2023-04-24 06:27 | W.PN.HOSP.TC ---
Addendum entered and electronically signed by Killian Mckeon MD 04/24/23 15:11:
Addendum
d/w nephrology, ok to dc Taylor & IVF
End
Original Note:
Today's Communication/Plan
-
.
Assessment / Plan
Assessment / Plan
Physical Exam
General: ill looking, no respiratory distress
HEENT: Normocephalic, Moist mucous membranes and Atraumatic
Respiratory: Clear
Cardiac: S1/S2 and Regular Rhythm; No Murmur or Rub
GI: Soft, Non Tender, Non Distended and Normal Bowel Sounds; No Organomegaly
Rectal: no bleeding
Musculoskeletal: No Clubbing, No Cyanosis and No Edema
Skin: wound in left upper thigh area with packing inside and + discharge, foul smelling, No Rash
Neuro: Nonfocal/grossly intact
Psych: no agitation
# Sepsis (leukocytosis, tachycardia, tachypnea) secondary to �Necrotizing soft tissue infection of the left thigh
s/p �Incision and debridement of necrotizing soft tissue infection of the thigh by Dr Taylor on 04/20. F further wound debridement 04/[address] Larios.
Plan for wash out and debridement today also
Wound culture preliminary report showing diphtheroids, group G Streptococcus, coagulase-negative Staphylococcus
Good improvement, sepsis seems to be controlled.
Afebrile in last 24 hours.
no significant pain
Borderline low BP but did not need pressure support
HR is better controlled.
Broad spectrum AB, meropenem and clindamycin
wound care per surgery
WBC is at 21 today, higher than yesterday
-CT scan of left lower extremity: Marked widespread bubbles of air throughout the superficial fatty soft tissues of virtually the entire proximal and mid left thigh
- Negative blood cultures.
Appreciate surgery, ID & ICU doctors input
# DONALD secondary to sepsis exacerbated by NSAID use
# Anion gap metabolic acidosis with lactic acidosis
Creatinine is down to 1.5 from 5.6
+ urine out put in Taylor
Maintain Taylor for now
c/w IVF
Renal US : Unremarkable with no hydronephrosis
Urine positive for occult blood and moderate bacteria slight leukocytes, positive for uric acid crystals
A appreciate nephrology input
# Prolonged QTc secondary to acidosis
-EKG shows normal sinus rhythm
QT within an average
# Acute blood loss anemia.
Mild
c/w to monitor
# Ischemic hepatitis , presented with Transaminitis in the setting of sepsis
-Continue to monitor
Ast/ALT are coming down
Ok to use Tylenol
No abd pain
# Hyponatremia
c/w IVF NS
Full code
DVT prophylaxis�SCDs
Left a VM to the son
Total time spent to see the patient, examine the patient on the floor, review data and lab results, discuss treatment plan with patient, nursing staff around 57 minutes
Anticipated Discharge: > 48 hours
Subjective/Interval History
-
Date of Service: April 24, 2023
No fevers over night
Objective Data
-
Labs:
Laboratory Results
04/24/23
03:17
WBC 21.4 H
Hgb 12.0 L
Hct 32.5 L
Plt Count 240
Sodium 134 L
Potassium 3.5
Chloride 97 L
Carbon Dioxide 28
BUN 66 H
Creatinine 1.5 H
Glucose 134 H
Calcium 7.0 L
Vital Signs:
Vital Signs
Temp Pulse Resp BP Pulse Ox
98.2 F 79 34 120/69 97
04/24/23 04:00 04/24/23 05:00 04/24/23 05:00 04/24/23 05:00 04/24/23 05:00
I&O
04/22/23 04/23/23 04/24/23
06:59 06:59 06:59
Intake Total 2920 / 3020 5600 / 5700 3580 / 3580
Output Total 1375 / 1575 2730 / 2880 3800 / 3800
Balance 1545 / 1445 2870 / 2820 -220 / -220
[2023-04-24] MEDS: KCL 20 MEQ PO (07:10)
[2023-04-24] MEDS: PROTONIX 20 MG PO (07:10)
[2023-04-24] MEDS: COLACE 100 MG PO ×2 (07:10→20:10)
[2023-04-24] MEDS: HEPARIN 5000 UNITS SC ×2 (07:10→20:10)
--- NOTE | 2023-04-24 07:13 | W.PN.INTV ---
Today's Communication / Plan
Recommendations
Return to OR today
On abx
DONALD improving, can likely reduce IVFs
PT/OT when able
Assessment
-
Patient is a 53-year-old male with no significant past medical history presenting to ER for subacute left leg pain and swelling.� 2 weeks ago, patient noted a small palpable lesion in the left thigh with mild TTP but no surrounding erythema.
This rapidly worsened in the past 48 hours with new drainage and worsening pain.� He has developed associated decreased PO intake and decreased urine output at the same time. In ER, noted to have severe metabolic acidosis and DONALD. Due to suspicion
for necrotizing fasciitis he underwent emergent incision and debridement of the thigh. Admitted to ICU postop.
Severe life-threatening necrotizing fasciitis status post emergent I&D 04/22/23
Return to OR 04/23/23
Severe metabolic acidosis
Acute kidney injury, creatinine 5.6
Hyponatremia
Hypocalcemia
Mild transaminitis
Leukocytosis
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
Anxiety disorder� �
Arthritis� �
Cataract-lens implants� �
Hernia repair� �
S/p deviated septum repair� �
Right knee arthroscopy� �
Current smoker
Plan
No current signs of metabolic encephalopathy or MS changes/following commands
Baseline MS reported as AAO x 3
Pain control
Pain/sedation: tylenol scheduled, dilaudid PRN
RASS goals: 0
Hemodynamically stable, not requiring pressors.
Cardiac history reviewed--none
No prior ECHO for review
Monitor on telemetry
Oxygen needs: stable on RA
Prior history of lung disease: none but he is a chronic smoker/no PFTs for review
Smoking cessation
Supplemental O2 as indicated to maintain sats > 89%
CXR/CT reviewed indicating NAD, repeat testing as needed
Diet advanced per surgery
Aspiration precautions, HOB > 30 degrees
Speech therapy eval can be considered if at elevated risk
GI prophylaxis if indicated for mechanical ventilation >48 hours, prior history of GERD, stress ulcer formation in the critically ill
DONALD present likely due to presumed sepsis/acidosis, improving
Nephrology following, can decreased IVFs if agree
No history of renal disease
Void trials
Follow urine output, critical I/Os
Replete electrolytes as needed: Ca, check Mg/phos
Acid/base status: acidosis improved, repeat labs trending down
Fever and increased WBC on presentation, nec fasc noted on CT--urgent finding with rapid progression in 48 hours
s/p urgent I&D 04/21/23, and 04/23/23 surgery following
Return to OR today 04/24/23
Continue on antibiotics, ID following
Cultures reviewed: + diptheroids, group G strep, LIFE SCIENTIST
Follow fever trend, WBC count
Lactate elevated on admission, continue to trend until <2
CBC stable, no signs of bleeding or coagulopathy.
DVT prophylaxis as assessed based on risk, including mechanical SCDs
Can transfuse if indicated for Hb <7, plt < 10
INR WNL
No prior h/o diabetes or thyroid disease
Monitor accuchecks PRN/SS coverage if needed
Diagnostic Data
Chest X-Ray: no acute process
CT Scan: LE 04/21/23- Marked widespread bubbles of air throughout the superficial fatty soft tissues of virtually the entire proximal and mid left thigh as well as some superficial edematous changes, suspicious for at least superficial soft tissue
infection. On the basis of this study, deep soft tissue infection of the left side cannot be excluded. No findings to confirm bubbles of air within the deep soft tissues/muscles of the left thigh. Evaluation for abnormal focal fluid collection such
as a soft tissue abscess markedly limited without intravenous contrast.
Echo:
PFT's:
Reports and relevant images were personally reviewed.
-----
Critical Care time 35 mins -- The patient is admitted for acute critical illness for the treatment of vital organ failure and/or prevention of further life-threatening conditions. Total care includes time spent in review of history, physical exam,
medications, hemodynamic/ventilator parameters, laboratory data, imaging and discussion with house staff, pharmacy, respiratory therapy, financial sales assistant, and nursing.
Subjective Dataa
Subjective Data
Date of Service:
Date of Service: April 24, 2023
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
Subjective:
For OR today
On abx
Pain is better this AM
Objective Data
Data Reviewed
Vital Signs / I&O / Oxygen:
Vital Signs
Temp Pulse Resp BP Pulse Ox
98.2 F 74 28 106/70 98
04/24/23 04:00 04/24/23 06:00 04/24/23 06:00 04/24/23 06:00 04/24/23 06:00
Intake and Output
04/23/23 04/24/23 04/25/23
06:59 06:59 06:59
Intake Total 5600 / 5700 3580 / 3580
Output Total 2730 / 2880 3800 / 3800
Balance 2870 / 2820 -220 / -220
SaO2 98
Nasal Cannula flow liters per 2
minute
Physical Exam
General: Comfortable and Other (NAD)
HEENT: Normocephalic, Anicteric and Moist Mucous Membranes
Cardiovascular: S1-S2 and Regular Rhythm
Respiratory: Clear and Non-Labored Respirations
GI: Soft, Non Distended and Non Tender
Neurology: Awake, Alert, Oriented, AO x 3 and No Motor Deficits
Skin: Warm, Dry and Other (drainage/dressings on L thigh)
Labs/Micro/Reports
Lab Data
04/24/23 03:17
04/24/23 03:17
Microbiology
04/21/23 16:43 Blood/Venous Blood Culture - Preliminary
No Growth in 48 hours- Final report to follow
04/21/23 16:41 Blood/Venous Blood Culture - Preliminary
No Growth in 48 hours- Final report to follow
04/21/23 16:55 Leg - Left Wound Culture - Final
Diptheroids
Group G Streptococcus
Coagulase neg. staphylococcus
04/21/23 16:55 Leg - Left Gram Stain - Final
04/21/23 19:45 Leg - Left Anaerobic Culture - Preliminary
Culture pending. Anaerobic cultures are examined after 3
days incubation. Additional information to follow.
04/21/23 19:45 Leg - Left Wound Culture - Preliminary
Group G Streptococcus
04/21/23 19:45 Leg - Left Gram Stain - Preliminary
04/22/23 02:59 Nose MRSA Screen - Final
No Methicillin Resistant Staphylococcus aureus isolated.
--- NOTE | 2023-04-24 08:09 | PTCARENOTE ---
report received, assessments per work list. patient denies pain even with repositioning. monitor nsr with avb, prolonged qt. lungs diminished with crackles on right. moist non productive occasional cough. abdomen distended, soft with bowel sounds.
Taylor draining yellow cloudy urine. awaiting pipe line repairer input prior to removal. left leg with pitting edema, redness extends to posterior thigh. hot and blanchable. dressing abd pads changed due to drainage. palpable pedal pulses. reviewed plan of
care. call enriquez in reach. awaiting OR for today.
--- NOTE | 2023-04-24 11:04 | W.PN.ID1 ---
Date of Service
Date of Service: April 24, 2023
Today's Communication
Continue antibiotics.
Assessment / Plan
Severe necrotizing left thigh SSTI
- cultures with Gp G strep. GNR's also seen on gram stain.
Marked leukocytosis
- improved.
DONALD
- improved
Transaminitis
Elevated CK
Elevated CRP
Recommendations:
Continue with meropenem and clindamycin. Meropenem dose has been adjusted given improvement in creatinine.
Tentative return to the OR today.
Monitor WBC, CK, LFTs, creatinine and CrCl.
Patient remains critically ill and intensive care unit. Given severity of infection, he is at risk for limb loss.
����������������������������������������������������������
Chief Complaint
-: Leukocytosis and Other (Necrotizing SSTI of left thigh)
Subjective / Review of Systems
Patient seen and examined. Denies pain at present. Notes no fevers or chills. Anticipates return to OR today.
Vital Signs / Physical Exam
Vital Signs
Vital Signs
Temp Pulse Resp BP Pulse Ox
97.8 F 79 30 114/76 96
04/24/23 07:25 04/24/23 10:00 04/24/23 10:00 04/24/23 10:00 04/24/23 10:00
Physical Exam
Physical Exam:
Constitutional: Acutely Ill and Non-toxic
Eyes: Sclera Anicteric
Cardiovascular: S1/S2; Negative S3/S4
Pulmonary: Non Labored; Negative Wheezes or Rales
Gastrointestinal: Soft and Non Tender
Extremities: Edema
Wound: Other (Left thigh packed, dressed and wrapped.)
Neurological: Awake and Alert
Psychological: Calm
Objective Data
Lab Data
Lab Results
04/24/23 03:17
03/08/24 03:17
PT 17.6 Sec (11.4-14.6) H 04/21/23 20:46
INR 1.46 04/21/23 20:46
APTT 25.8 Sec (23.4-35.0) 04/21/23 20:46
Estimated Creat Clear 68 ml/min 04/24/23 03:17
Lactic Acid 1.8 mmol/L (0.7-2.0) 04/21/23 21:00
Total Bilirubin 1.2 mg/dl (0.2-1.3) 04/22/23 12:39
AST 164 U/L (17-59) H 04/22/23 12:39
ALT 90 U/L (0-50) H 04/22/23 12:39
Alkaline Phosphatase 75 U/L (38-126) 04/22/23 12:39
C-Reactive Protein > 270.00 mg/L (0.0-10.00) H 04/21/23 16:41
Most recent labs reviewed.
CT Scan: Image Reviewed and Report Reviewed
Micro Results:
04/21/23 19:45 Anaerobic Culture - Preliminary
Leg - Left Culture pending. Anaerobic cultures are examined after 3
days incubation. Additional information to follow.
04/21/23 19:45 Wound Culture - Preliminary
Leg - Left Group G Streptococcus
Gram Stain - Preliminary
04/21/23 16:43 Blood Culture - Preliminary
Blood/Venous No Growth in 48 hours- Final report to follow
04/21/23 16:41 Blood Culture - Preliminary
Blood/Venous No Growth in 48 hours- Final report to follow
04/21/23 16:55 Wound Culture - Final
Leg - Left Diptheroids
Group G Streptococcus
Coagulase neg. staphylococcus
Gram Stain - Final
04/22/23 02:59 MRSA Screen - Final
Nose No Methicillin Resistant Staphylococcus aureus isolated.
Imaging:
04/21/2023 CT left lower extremity: Marked widespread soft tissue gas throughout the superficial fatty soft tissue of virtually the entire proximal and mid left thigh as well as some superficial edematous changes. Deep soft tissue infection cannot be
excluded. Please see full dictation for additional detail. Film personally viewed.
--- NOTE | 2023-04-24 11:20 | W.PN.ANS.POP ---
Anesthesia Post Operative
- Anesthesia Post Op Note
Vital Signs Stable-See Nursing Note: Yes
Airway Patent: Yes
Adequate Pain Control: Yes
Change in Mental Status: No
Current Postoperative Nausea & Vomiting: No
Anesthesia Complications: No
General Anesthetic Recall: No
Unplanned Admission: No
Post Op Hydration Adequate: Yes (iv, npo for OR today)
--- NOTE | 2023-04-24 12:28 | PTCARENOTE ---
patient transfer to OR without issue@1200
--- NOTE | 2023-04-24 14:15 | W.PN.NEPH.PH ---
Today's Communication / Plan
-
- sign off
Assessment/Plan
-
Impression:
Acute kidney injury
Hyponatremia
Anion gap metabolic acidosis
Sepsis (leukocytosis, tachycardia, tachypnea) secondary to suspected necrotizing fasciitis of left lower extremity
Abnormal LFTs/elevated CPK
Plan:
Acute kidney injury likely a function of prerenal stimulus in setting of sepsis versus NSAID induced injury
Creatinine improving to 1.5 and remains grossly nonoliguric
Zosyn renally dose. blood cultures negative thus far wound culture notable for diphtherioids
obtained urinalysis: trace albumin 2 plus blood and kidney and bladder ultrasound:normal
Maintain MAP greater than 65 to augment renal perfusion pressure
Replete calcium PRN
Metabolic acidosis improved with alkaline IV fluid. now off NS
Normtensive now
hyponatremia improved with fluid restriction 50oz
No need for dialysis
No more NSAIDs
Nephrology will sign off. Rest of care per primary team.
Please have the patient follow up with us in the outpatient setting about 6-8 weeks after discharge
Obtain BMP in 1 month after discharge
-
-
Date of Service: April 24, 2023
CC / HPI / ROS
-
Chief Complaint:
Acute kidney injury
History of Present Illness:
Creatinine improved to 1.5
Hemodynamically labile
Metabolic acidosis improved with alkaline IV fluid
Review of Systems:
Nonoliguric via Taylor
Fevers noted
Labs
-
Labs:
WBC 21.4 10^3/uL (4.8-10.8) H 04/24/23 03:17
RBC 3.75 10^6/uL (4.70-6.10) L 04/24/23 03:17
Hgb 12.0 g/dL (13.0-18.0) L 04/24/23 03:17
Hct 32.5 % (39.0-52.0) L 04/24/23 03:17
Plt Count 240 10^3/uL (130-400) 04/24/23 03:17
Sodium 134 mmol/L (135-145) L 04/24/23 03:17
Potassium 3.5 mmol/L (3.5-5.1) 04/24/23 03:17
Chloride 97 mmol/L (98-107) L 04/24/23 03:17
Carbon Dioxide 28 mmol/L (22-30) 04/24/23 03:17
BUN 66 mg/dl (9-20) H 04/24/23 03:17
Creatinine 1.5 mg/dL (0.7-1.3) H 04/24/23 03:17
eGFR 54.64 04/24/23 03:17
Glucose 134 mg/dl (70-99) H 04/24/23 03:17
Calcium 7.0 mg/dl (8.4-10.2) L 04/24/23 03:17
Phosphorus 7.3 mg/dl (2.5-4.5) H 04/22/23 12:39
Albumin 2.5 g/dl (3.5-5.0) L 04/22/23 12:39
Physical Exam
-
Vital Signs:
Vital Signs
Temp Pulse Resp BP Pulse Ox
98.1 F 79 30 114/76 96
04/24/23 11:00 04/24/23 10:00 04/24/23 10:00 04/24/23 10:00 04/24/23 10:00
Cardiovascular:: Regular rate and rhythm
Respiratory:: Bilateral: Coarse
Lung Excursion:: Normal
Abdomen:: Nontender and Soft
Bowel Sounds:: Normal
Extremity Edema:: +1: Bilateral:
Taylor Catheter: Yes
--- NOTE | 2023-04-24 15:21 | W.IMMPOSTOP ---
Addendum entered and electronically signed by Alex Larios MD 04/24/23 16:07:
#[id number]
Original Note:
Surgical Immed Post Op Note
-
Primary Surgeon: Ric
Assisting Surgeon: None
Pre-op Diagnosis: Necrotizing Fascitis
Post-op Diagnosis: Necrotizing Fascitis
Procedure Performed: Extensive excisional sharp debridement left lower extremity and pulse irrigation washout
Anesthesia Type: General tracheal
Specimen / Cultures: None
Estimated Blood Loss: 50 mL
Complications: None immediate
Operative Findings: Progressive necrotizing soft tissue infection of the fascia and subcutaneous fat within the left lower extremity from inguinal region to now below the knee joint along the medial and lateral aspect. Anterior dermis with necrosis
requiring resection. Dishwater and necrotic tissue tracking along fascial tissue planes nearly circumferential at mid to distal thigh. Tracking medially through the peroneal region. Areas of fascial necrosis with muscular exposure but muscle
still appears viable.
Plan: Recommended transfer to tertiary care center given extensiveness of this soft tissue infection which has continued to progress despite very aggressive surgical exploration/debridement. Discussed with acute care surgeon, Dr. Patel at [facility] who is excepted patient in transfer to SICU.
--- NOTE | 2023-04-24 15:39 | CM ---
CM following re: discharge planning.
Discussed in Rounds, reviewed pt's chart, met with pt.
Per MD, recommended transfer to tertiary care center and Dr. Patel at [facility] who is excepted patient in transfer to SICU.
D/C plan: transfer to [facility].
--- NOTE | 2023-04-24 15:51 | PTCARENOTE ---
patient received from OR, drowsy, but oriented. c/o left leg pain. denies nausea. lungs with coarse breath sounds. IVF d/c per order. klein to remain per hospitalist and surgeon. patient to transfer to [facility] S[facility]. hospitalist, surgery and ID in to
speak with patient. medicated with roxycodone per prn order. tolerating sips liquids without issue. call enriquez in reach
--- NOTE | 2023-04-24 15:56 | W.PN.UPDATE ---
Update Note
Progress Note Update
Addendum
Patient went to the OR for debridement and washout. Patient was found to have progressive necrotizing fasciitis that seem spreading below the knee and going deeper. I discussed with surgery. Patient will be transferred to service of Dr. Patel of [facility] for higher level of care as patient will need daily surgical intervention with skin grafting to save his limb.
I discussed with the patient. Agreed and consented to transfer
I called the son and left with my number to call me back for am important update
I also left him yesterday with my phone number but no call back
Total discharge time spent to see the patient, examine the patient on the floor, review data and lab results, discuss treatment plan with patient, consultants, nursing staff around 69 minutes.
End
--- NOTE | 2023-04-24 16:00 | W.DCSUMMARY ---
Discharge Summary
Discharge Data
Date of Admission: 04/21/23
Date of Discharge: 04/24/23
-
Pending Results: No
Hospital Course
53 years old male presented with left groin/ thigh infection. Patient had inflamed tender area on the left medial thigh for few weeks that started to increase in size and tenderness 2 days before presenting to the hospital. There was drainage
from the area. He saw his primary care doctor and he was sent immediately to the emergency room. Patient was evaluated immediately by the surgery service. Scan of the left lower extremity showed soft tissue edema and emphysema of the soft tissue
extending from the groin to the area above the knee. Patient was found to have multiple organ failure with severe sepsis. He had acute kidney injury. Patient was taken to the operating room for incision and debridement. He was diagnosed with
necrotizing fasciitis. Patient received intravenous antibiotics and was followed by infectious diseases market research consultant. Patient was monitored in intensive care unit. He received intravenous fluid and wound care. His wound was evaluated daily and he
was taken to the operating room daily to do extensive excisional debridement with irrigation and washout. His kidney function started to improve with good urine output. He was followed by auto bench mechanic. Renal failure was believed to be
nonsteroidal anti-inflammatory medication and sepsis induced. Surgery recommended to transfer the patient to tertiary care center given extensiveness of the soft tissue infection which continued to progress despite very aggressive surgical
exploration and debridement. Patient did not need pressure support medications. He did not have hypoxia. Patient remained alert and fully oriented. Patient agreed to the transfer. Arrangements were made with acute care surgery service at
[facility]. Family of the patient was informed and they agreed to the transfer. Patient was transferred on 04/24/2023 in a stable condition.
Discharge Plan
-
Patient Disposition: Acute Care Hospital
Discharge Orders:
Discharge Patient (As Directed); Ordered 04/24/23
Ordered By: Killian Mckeon
Discharge Date and Time
Discharge Date/Time: 04/24/23 20:40
--- NOTE | 2023-04-24 17:14 | PTCARENOTE ---
patient with poor appetite for dinner. denies nausea. repositioned. report given to [facility], awaiting bed availability
--- NOTE | 2023-04-24 17:37 | PTCARENOTE ---
Addendum entered by Betty Caldwell RN 04/24/23 18:11:
call to [facility] to give report. they request next shift call as transport is scheduled for 2099. [phone](number to call), patient son updated with transport time and target unit
Original Note:
spoke with patient son at length over phone. he has not received voice mails but will check his settings to ensure unknown callers are not blocked. correct contact numbers on file
--- NOTE | 2023-04-24 21:25 | PTCARENOTE ---
Late note due to patient care. Pt was picked up via ambulance Acute care transport and taken to [facility]. Report called to Ilsa MONTOYA. Pt was given roxicodone 5mg before transport for pain.
== END 2023-04-24 20:40 | disposition short-term general hospital (02) | DRG 853 ==
LOC: ICU 19:14
PROVIDERS: Anesthesiology; Nurse Practitioner Family; Nurse Practitioner Primary Care; Specialist; Surgery; ADMITTING PHYSICIAN Hospitalist; ATTENDING PHYSICIAN Internal Medicine; CONSULT PHYSICIAN Internal Medicine; CONSULT PHYSICIAN Internal Medicine Infectious Disease; CONSULT PHYSICIAN Student in an Organized Health Care Education/Training Program; CONSULT PHYSICIAN Surgery; EMERGENCY PHYSICIAN Emergency Medicine
PROC: 0J9M3ZZ Drainage of Left Upper Leg Subcutaneous Tissue and Fascia, Percutaneous Approach (ICD-10-PCS; 2023-04-21)
PROC: 0JBM0ZZ Excision of Left Upper Leg Subcutaneous Tissue and Fascia, Open Approach (ICD-10-PCS; 2023-04-23)
DX: A41.9 Sepsis, unspecified organism (principal); K72.00 Acute and subacute hepatic failure without coma; M72.6 Necrotizing fasciitis; N17.9 Acute kidney failure, unspecified; E87.20 Acidosis, unspecified; E87.1 Hypo-osmolality and hyponatremia; D62 Acute posthemorrhagic anemia; R65.20 Severe sepsis without septic shock
CPT/HCPCS: 51798; 71045; 73700; 76770; 80048; 80053; 80202; 81003; 81015; 82330; 82550; 82570; 83605; 83615; 83735; 84100; 84156; 85025; 85027; 85610; 85730; 86060; 86063; 86140; 86160; 86850; 86900; 86901; 87040; 87070; 87075; 87077; 87147; 87205; 93005; 96361; 96374; 96375; 99291; 99406; J2185

== ENCOUNTER → 2024-04-28 14:04 | Outpatient (REF) | payer BC, SELFPAY | LOC: HWRAD 14:04 | PROVIDERS: ATTENDING PHYSICIAN Student in an Organized Health Care Education/Training Program; FAMILY PHYSICIAN Student in an Organized Health Care Education/Training Program | DX: R35.0 Frequency of micturition (principal); N39.44 Nocturnal enuresis | CPT/HCPCS: 76857 ==

== ENCOUNTER → 2024-08-08 14:40 | Outpatient (REF) | payer BC, SELFPAY | LOC: HWRAD 14:40 | PROVIDERS: ATTENDING PHYSICIAN Student in an Organized Health Care Education/Training Program | DX: Z11.52 Encounter for screening for COVID-19 (principal) | CPT/HCPCS: 73110 ==

== ENCOUNTER → 2024-10-18 13:11 | Outpatient (REF) | payer BC, SELFPAY | LOC: DHSLP 13:11 | PROVIDERS: ATTENDING PHYSICIAN Student in an Organized Health Care Education/Training Program | DX: G47.33 Obstructive sleep apnea (adult) (pediatric) (principal) | CPT/HCPCS: 95800 ==

== ENCOUNTER → 2024-12-02 08:58 | Outpatient (REF) | payer BC, SELFPAY | LOC: HWRAD 08:58 | PROVIDERS: ATTENDING PHYSICIAN Internal Medicine Critical Care Medicine; FAMILY PHYSICIAN Student in an Organized Health Care Education/Training Program | DX: F17.210 Nicotine dependence, cigarettes, uncomplicated (principal) | CPT/HCPCS: 71271 ==